=== PATIENT | male | born 1975 | race Caucasian/White ===

== ENCOUNTER 2019-11-13 21:11 | Emergency (ER) | payer OTHER, SELFPAY ==
[2019-11-13 21:15] VITALS: BP 164/92; PULSE 122; RESP 19; TEMP 36.8; O2SAT 96
--- NOTE | 2019-11-13 21:16 | W.ED.GENAD ---
Discharge Plan Disposition Patient Disposition: HOME Condition: Good Discharge Details Chief Complaint: Abd Prob Clinical Impression: Acute diverticulitis, Lesion of left lobe of liver Primary Care Provider: None,None ED Provider: Durga Vickers and New Rx's Prescriptions: New amoxicillin-pot clavulanate [Augmentin] 875-125 mg tablet 1 tab PO TID Qty: 27 RF: 0 Continued acetaminophen [Tylenol] 325 mg Tablet 975 mg PO PRN PRNRF: 0 Discharge Instructions Instructions: Diverticulitis (ED), Diverticulitis Diet (ED) Additional Instructions: Please stay home and rest. Plenty of fluids and bland diet for the next couple of days. Take antibiotic as directed. Alternate Tylenol with Motrin for pain. Will need recheck on Tuesday before returning back to work. Return to ED if you develop worsening pain, vomiting, spiking high fevers, otherwise feel worse. At some point will need further outpatient work-up of a lesion noted on CAT scan in the liver. Discuss this with primary care. Stand Alone Forms: Work Release Referrals: [facility] [Outside] [facility] [Outside] Medical Decision Making Patient presenting with abdominal pain that likely is related to diverticulitis or colitis given his description of pain and his exam. He is not febrile here. He does have elevated heart rate and blood pressure may be due to being uncomfortable. He does not look ill. He has a nonsurgical abdomen. IV established and fluids started. Patient declines both pain medication and antiemetic. Laboratory studies sent. CT scan of the abdomen pelvis ordered. Patient laboratory studies remarkable for white count of 13.5. Labs otherwise unremarkable including a normal lactic acid and a negative urine. On return from CT scan patient finally requested pain medication and was given IV Toradol. Preliminary read of the CT scan shows acute diverticulitis of the mid descending colon. He is also noted to have a 10 x 9 x 6 nonspecific left hepatic lobe of the liver that will need outpatient work-up. Patient is otherwise healthy with a nonsurgical abdomen and no vomiting. Should tolerate outpatient treatment of his diverticulitis. Will get a dose of IV Unasyn here. Will be started on Augmentin. Is asked to follow-up with primary care at the [facility] on Tuesday for recheck before returning to work. He is given a work note for the next 2 days. Return to ED for worsening pain, vomiting, spiking high fevers, other concerns or problems. Repeat belly exam at time of discharge remains benign with mild tenderness in the left lower quadrant but no guarding or rebound. Patient reports feeling better than when he came in. Lab Data Lab results reviewed: Yes I reviewed the patient's lab results. HPI General Mode of arrival: ambulatory. Date/Time Provider Initiated Documentation: 11/13/19 21:16. Limitations to Documentation: no limitations. Information obtained by: patient and RN notes reviewed. HPI Narrative: Patient presents to ED with complaint of abdominal pain. Patient reports pain started 2 days ago. It has been getting progressively worse. He now feels the urge to defecate almost constantly. He has some bloating. Discomfort is mostly in the lower abdomen but radiates to both sides of his back. He had some blood in the toilet but reports a history of hemorrhoids. He reports that the stool itself was normal in color. This was 2 days ago when the pain started. He now has liquidy stool which is mostly clear. She had no fever. He has no nausea/vomiting. He has an appetite. There is no family history of Crohn's or ulcerative colitis. He has had no travel outside of [place]. He has not been on antibiotics recently. 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 He has not drank from any [place] or streams. Related Data Home Medications Medication Instructions Recorded Confirmed acetaminophen [Tylenol] 975 mg PO PRN PRN 11/13/19 11/13/19 amoxicillin-pot clavulanate 1 tab PO TID #27 tab 11/13/19 [Augmentin] Previous Rx's Medication Instructions Recorded amoxicillin-pot clavulanate 1 tab PO TID #27 tab 11/13/19 [Augmentin] Allergies Allergy/AdvReac Type Severity Reaction Status Date / Time erythromycin base Allergy Severe Other (See Unverified 11/13/19 21:20 Comment) Review of Systems Narrative: 08/13 Review of Systems completed and is negative except as stated above in HPI (Systems reviewed: Const, Eyes, ENT, Resp, CV, GI, , MSK, Skin, Neuro) PFSH Medical History No active medical problems (Acute) Surgical History S/P hernia repair (Acute) Social History Smoking/Tobacco Use Status: Never Drug use: Never Substance use type: does not use Do you feel safe at home: Yes Do you feel safe in your relationship?: Yes Exam Narrative Exam Narrative: Vitals: Afebrile. Elevated heart rate and blood pressure. Normal room air pulse oximetry. Const: WDWN male in NAD. HEENT: NC/AT. Normal facial exam. Eyes: Normal conjunctiva and sclera. Neck: Supple. Trachea midline. Lungs: Normal respiratory effort. Lungs are clear. Cor: RRR without murmur/gallop. Good radial pulses. GI: Soft and nondistended. Bowel sounds decreased. Tender to palpation mostly in the left lower quadrant but without guarding or rebound. Some tenderness along the path of the colon all the way to the right lower quadrant. Rectal: Deferred. Back: No CVAT. Neuro: A+O x 3. Speech, gait, mentation is normal. No gross motor or sensory deficit. Ext: No C/C/E. No deformity or tenderness. Skin: Warm and dry without rash.
[2019-11-13] MEDS: Lactated Ringers 1,000 ML 125 ML IV (21:55)
[2019-11-13 22:02] LABS: Lactate 0.9 mmol/L (0.6-1.4)
[2019-11-13 22:03] LABS: Bilirubin Negative (Negative); Blood Negative (Negative); Clarity Clear (Clear); Glucose Negative (Negative); Ketones Negative (Negative); Leukocyte Esterase Negative (Negative); Nitrite Negative (Negative); Urobilinogen 0.2 EU/dL (Up TO 0.2)
[2019-11-13 22:04] LABS: Abs Immature Grans 0.04 k/cumm (0.0-0.09); Absolute Neutrophil Count 10.05 k/cumm (1.2-6.7); Basophils % 0.1; Eosinophils % 1.5; HGB 16.4 g/dL (13.5-17.5); Immature Grans % 0.3 %; Lymphocytes % 16.1; Mean Corp. HGB Concentration 34.2 g/dL (32.0-36.0); Mean Corpuscular Hemoglobin 31.2 pg (27.0-33.0); Mean Corpuscular Volume 91.3 fL (80-95); Mean Platelet Volume 10.7 fL (8.0-11.0); Platelet Count 281 x1000/uL (130-400); RBC 5.26 m/cumm (4.50-6.00); RBC Distribution Width 13.3 % (11.8-14.1); White Blood Cell Count 13.58 k/cumm (4.4-10.8)
[2019-11-13 22:05] LABS: Absolute Basophil Count 0.01 k/cumm (0.0-0.2); Absolute Lymphocyte Count 2.19 k/cumm (1.2-3.4); Absolute Monocyte Count 1.09 k/cumm (0.11-0.7)
[2019-11-13 22:18] LABS: Lipase 124 U/L (73-393)
[2019-11-13] MEDS: Omnipaque 350 MG/ML 100 ML BTL IV (22:19)
[2019-11-13 22:21] LABS: ALT 31 U/L (16-63); AST 12 U/L (15-37); Albumin 3.8 g/dL (3.4-5.0); Alkaline Phosphatase 61 U/L (46-116); BUN 17 mg/dL (7-18); Bilirubin, Total 0.6 mg/dL (0.2-1.0); CREATININE 0.85 mg/dL (0.70-1.30); Calcium 9.4 mg/dL (8.5-10.1); Chloride 104 mmol/L (98-107); Glucose 98 mg/dL (74-106); Potassium 4.1 mmol/L (3.5-5.1); Sodium 142 mmol/L (136-145); Total Protein 6.8 g/dL (6.4-8.2)
[2019-11-13] MEDS: Normal Saline - Diluent 50 ML VIAL IV (22:21)
--- NOTE | 2019-11-13 22:21 | DI.CT_ITS ---
EXAM: CT ABDOMEN PELVIS W CLINICAL HISTORY: abdominal pain; tender LLQ,constipation TECHNIQUE: Imaging Protocol: Axial computed tomography images with coronal and sagittal reformatted images were created and reviewed CONTRAST MATERIAL: Intravenous: Omnipaque 350 Contrast volume:100 mL Oral: No COMPARISON: No exams were available for comparison FINDINGS: ABDOMEN: Lung Bases: Normal where visualized. Liver: Normal density. There is a 0.9 x 0.6 x 1.0 cm., low-density lesion in the medial segment of th e left lobe of the liver. Gallbladder and biliary tract: No radiodense calculus or dilation. Pancreas: Normal density, no abnormal calcifications or inflammatory process. Spleen: Normal. 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 This is a normal variant. No mass or hydronephrosis. N o radiodense stones or obstructive uropathy. No masses seen. Adrenal glands: No masses seen. Abdominal Aorta: Abdominal portion non-dilated. PELVIS: Bladder: Symmetric distention, no gross wall thickening. Bowel: There is diverticulosis of the colon. There is a short segment of bowel wall thickening in th e descending colon with pericolonic inflammatory change noted. The findings are consistent with acut e diverticulitis. No abscess or free air is present. There is a normal appendix present. Peritoneal cavity: No ascites, collection or mesenteric inflammatory response. Bones: Within normal limits. Reproductive organs: The prostate gland is mildly enlarged. Lymph nodes: Unremarkable. Impression: 1. Findings of acute diverticulitis involving the descending colon. No abscess or free air. 2. 0.9 x 0.6 x 1.0 cm low-density lesion in the medial segment of the left lobe of the liver. The fi nding is nonspecific. For low risk patients, recommend follow-up CT or MRI in 6 months. For high ri sk patients, recommend multiphasic MRI and consider biopsy. For average risk patients, multiphasic M RI in 6 months is recommended. 3. Horseshoe kidney noted. This is a normal variant. DATA REPOSITORY: All CT scans at this facility are submitted to the National Radiology Data Registry (NRDR) Dose Index Registry (DIR) with the [employer] (ACR). RADIATION OPTIMIZATION: All CT scans at this facility use at least one of these dose optimization te chniques: automated exposure control; mA and/or kV adjustment per patient size (includes targeted exa ms where dose is matched to clinical indication); or iterative reconstruction.
[2019-11-13 22:30] VITALS: BP 140/93; PULSE 101; RESP 18; O2SAT 98
--- NOTE | 2019-11-13 22:52 | DI.VRAD_ITS ---
PROCEDURE INFORMATION: Exam: CT Abdomen And Pelvis With Contrast Exam date and time: 11/13/2019 10:21 PM Age: 44 years old Clinical indication: Localized; Prior surgery; Surgery date: 6+ months; Surgery type: Inguinal hernia repair as a child, vasectomy; Patient HX: Lower abdominal pain radiating around and down into groin area; Additional info: Constipation with diarrhea after TECHNIQUE: Imaging protocol: Computed tomography of the abdomen and pelvis with intravenous contrast. Radiation optimization: All CT scans at this facility use at least one of these dose optimization techniques: automated exposure control; mA and/or kV adjustment per patient size (includes targeted exams where dose is matched to clinical indication); or iterative reconstruction. Contrast material: OMNIPAQUE 350; Contrast volume: 100 ml; Contrast route: IV RAC; COMPARISON: No relevant prior studies available. FINDINGS: Lungs: Visualized lung bases are clear. Heart: Heart size normal. Mediastinum: The visualized distal esophagus is normal. Liver: Normal size and contour. 9 x 6 x 10 mm low-density lesion in the left hepatic lobe with fairly circumscribed peripheral margins, measuring 35 Hounsfield units on average density. This is nonspecific. For low risk patients, recommend follow up CT or MRI in 6 months. For average risk patients, recommend multiphasic MRI in 6 months. For high risk patients, recommend multiphasic MRI and consider biopsy (core preferred). No intrahepatic biliary ductal dilatation. Gallbladder and bile ducts: Normal. No calcified stones. No ductal dilation. Pancreas: Normal. No inflammatory changes or ductal dilation. Spleen: Normal. No splenomegaly. Adrenals: Normal. No adrenal mass. Kidneys and ureters: Horseshoe kidney configuration noted. No acute abnormalities. No hydronephrosis or hydroureter. No urinary tract stones are identified. Stomach and bowel: The stomach is grossly normal. The small bowel is normal with no evidence of obstruction. Mild-moderate distal colonic diverticulosis. Inflamed diverticulum along the medial anterior wall of the mid descending colon with short segment bowel wall thickening and moderate adjacent inflammatory stranding, consistent with acute diverticulitis. No evidence of perforation or abscess. Appendix: The appendix is normal in caliber and demonstrates no evidence of appendicitis. Intraperitoneal space: No free fluid or air. Vasculature: No acute process. No abdominal aortic aneurysm. Lymph nodes: No adenopathy. Bladder: Unremarkable as visualized. Reproductive: Mildly enlarged prostate. Bones/joints: No acute osseous abnormalities. Soft tissues: Unremarkable. IMPRESSION: 1. Evidence of acute diverticulitis in the mid descending colon. No evidence of perforation or abscess. 2. Mild-moderate distal colonic diverticulosis. 3. Nonspecific 10 x 9 x 6 mm low-density under enhancing lesion in the left hepatic lobe with somewhat indistinct peripheral margins and an average density of 35 Hounsfield units. These features are nonspecific. Please see follow-up imaging recommendations above. 4. Horseshoe kidney configuration noted, normal variant, with no acute renal abnormalities. Dictated and Authenticated by: Tomy Schneider MD. Ordering:SEFERINO Calixto MD
[2019-11-13] MEDS: Ketorolac 30 MG/ML VIAL IVP (22:53)
[2019-11-13] MEDS: AMPICILLIN/SULBACTAM 3 GM in Normal Saline 100 ML IVPB (23:13)
[2019-11-13 23:59] VITALS: BP 130/78; PULSE 100; RESP 16; TEMP 37.8; O2SAT 95
[2019-11-13] MEDS: Amoxicillin 875/Clav. 125 TAB PO (23:59)
--- NOTE | 2019-11-20 11:55 | CMPROGNOTE_ITS ---
Care Management Progress Note Seen in ER 11/13/19. Rec?d call from Pallavi in Radiology requesting PCP assignment for follow up. Per ER note[facility] noted. [facility] who confirmed PCP attachment at [facility] in [place], [place] with Izzy Elias APRN. Patient was seen 11/16/19. CM left message for Pallavi through Radiology [id number], notifying of PCP assignment. CM faxed notification to [facility] of PCP assignment and requested they update demographics.
== END 2019-11-14 | disposition home or self-care (01) ==
PROVIDERS: Emergency Provider Emergency Medicine; PCP Nurse Practitioner Primary Care
DX: K57.32 Diverticulitis of large intestine without perforation or abscess without bleeding (principal); R93.2 Abnormal findings on diagnostic imaging of liver and biliary tract
CPT/HCPCS: 36415; 80053; 83690; 96361; 96365; 96375; 99285; 74177; 81003; 83605; 83735; 85025; 99284; J0295; J1885; J3490

== ENCOUNTER 2019-12-25 01:59 | Outpatient (CLI) | payer OTHER, SELFPAY ==
--- NOTE | 2019-12-25 | DI.MRI_ITS ---
EXAM: MR ABDOMEN WO/W CLINICAL HISTORY: MULTIPLE INFECTIONS IN LAST YEAR, FEELING DRAINED, [id number]. TECHNIQUE: Multiplanar multisequence MRI was performed. COMPARISON: CT ABDOMEN PELVIS W from 11/13/2019 FINDINGS: MR examination of the abdomen was performed according to the usual protocol including post contrast i maging using arterial phase, venous phase, and 3 and 5 minutes delayed phase imaging. Note is made of horseshoe kidney. No evidence of hydronephrosis or renal mass. No evidence of adren al mass. No vascular abnormality seen, normal aortic diameter. Gallbladder and bile ducts unremarkable. 2 cm in diameter posterior segment right lobe hepatic lesio n shows a typical enhancement pattern of hemangioma. No additional focal hepatic lesion. No pancrea tic cyst. No pancreatic mass lesion or enhancing lesion. No adenopathy identified. Unremarkable appearance of the spleen. IMPRESSION: Negative abdominal MRI. No evidence of a pancreatic mass. Incidental right lobe posterior segment 2 cm hepatic hemangioma. DATA REPOSITORY:
[2019-12-25] MEDS: Normal Saline Flush 10 ML SYR IVP (14:20)
[2019-12-25] MEDS: Gadoterate meglumine 20 ML VIAL IVP (14:20)
== END 2019-12-25 02:19 ==
PROVIDERS: PCP Nurse Practitioner Primary Care; Visit Provider Nurse Practitioner Primary Care
DX: R53.83 Other fatigue (principal); D18.03 Hemangioma of intra-abdominal structures
CPT/HCPCS: 74183

== ENCOUNTER 2020-03-19 13:00 | Outpatient (CLI) | payer OTHER, SELFPAY ==
[2020-03-20 17:12] LABS: COVID-19 RT-PCR Result NEGATIVE (Negative)
== END 2020-03-19 13:20 ==
PROVIDERS: PCP Nurse Practitioner Primary Care; Visit Provider Nurse Practitioner Primary Care
DX: Z11.59 Encounter for screening for other viral diseases (principal)
CPT/HCPCS: U0003

== ENCOUNTER 2020-05-23 12:38 | Outpatient (CLI) | payer OTHER, SELFPAY ==
[2020-05-27 21:47] LABS: SARS-CoV-2 RNA Undetected (Undetected); SARS-CoV-2 Specimen Source Nasopharynx
== END 2020-05-23 12:58 ==
PROVIDERS: PCP Nurse Practitioner Primary Care; Visit Provider Nurse Practitioner
DX: Z11.59 Encounter for screening for other viral diseases (principal)
CPT/HCPCS: U0003

== ENCOUNTER 2020-06-25 06:22 | Emergency (ER) | payer OTHER, SELFPAY ==
--- NOTE | 2020-06-25 06:15 | DI.RAD_ITS ---
EXAM: XR WRIST RT COMPL NAVICULAR CLINICAL HISTORY: pain s/p fall TECHNIQUE: COMPARISON: No exams were available for comparison FINDINGS: Four views were obtained. No fracture is seen. Mild degenerative changes noted at the greater multa ngular 1st metacarpal joint. IMPRESSION: RADIATION DOSE DELIVERED: Total DLP
--- NOTE | 2020-06-25 06:15 | DI.RAD_ITS ---
EXAM: XR KNEE LT 3V AP,LAT,ANN MARIE CLINICAL HISTORY: pain s/p fall TECHNIQUE: COMPARISON: No exams were available for comparison FINDINGS: Three views were obtained. There is moderate soft tissue swelling over the patella. There is no verenice dence of acute fracture or dislocation. IMPRESSION: RADIATION DOSE DELIVERED: Total DLP
[2020-06-25 06:26] VITALS: BP 112/87; PULSE 89; RESP 16; TEMP 36.6; O2SAT 96
--- NOTE | 2020-06-25 06:27 | ED.GENADUL_ITS ---
Discharge Plan Disposition Patient Disposition: HOME Condition: Stable Discharge Details Chief Complaint: Orthopedic Clinical Impression: Contusion of knee, left, Right wrist sprain Primary Care Provider: Izzy Elias ED Provider: Dony Garcia Home Meds and New Rx's Prescriptions: Continued propranolol 40 mg tablet 40 mg PO BID RF: 0 hydrochlorothiazide 12.5 mg capsule 12.5 mg PO DAILY RF: 0 hydroxyzine HCl 25 mg tablet 25 mg PO QID PRN (Reason: itching) Qty: 30 RF: 1 albuterol sulfate 90 mcg/actuation HFA aerosol inhaler 2 puff IH Q4H PRNRF: 0 acetaminophen [Tylenol] 325 mg Tablet 975 mg PO PRN PRNRF: 0 Changed ibuprofen 800 mg tablet 800 mg PO Q8H PRN PRNQty: 0 RF: 0 Discharge Instructions Instructions: Contusion in Adults (ED) Additional Instructions: if pain continues in a week follow up with your primary care provider if you have new pain such as chest pain, abdominal pain or severe worsening pain return to the emergency department Medical Decision Making 44 yo male who has hx of migraines, 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 Denies hitting head or loc. Denies headache, neck pain, back pain, chest pain, abdominal pain. Has pain in left anterior knee with some swelling and bruising though is able to bear weight and has full rom and intact distal sensation. Also has ulnar surface of his right wrist pain though no visible or palpable deformity and full rom with intact sensaiton and pulses. Suspect wrist sprin and knee contusions but will xray to eval for fx pt remains stable with no new changes and no new pain, xrays negative for acute fx/dislocation. Placed in hinged knee brace and crutches to use as needed. ADvised f/u with pcp and return precautions given Differential Diagnosis Differential Diagnosis: sprain strain contusion fracture Imaging Data Radiologic Study: Attestation: I personally reviewed and interpreted this imaging study as follows: Imaging: X-Ray My impression: no acute findings knee xray Radiologic Study #2: Attestation: I personally reviewed and interpreted this imaging study as follows: Imaging: X-Ray My impression: no acute findings wrist xray HPI General Mode of arrival: ambulatory . Date/Time Provider Initiated Documentation: 06/25/20 06:23 . Limitations to Documentation: no limitations . Information obtained by: patient . History of Present Illness 44 year old M presents to the emergency department with the chief complaint of left knee pain, described as moderate, Patient started experiencing this hour(s) (2) and it has been constant. Rest improves symptom(s), Movement worsens symptoms . Patient did receive the following treatments prior to arrival, none Related Data Home Medications Medication Instructions Recorded Confirmed acetaminophen [Tylenol] 975 mg PO PRN PRN 11/13/19 06/25/20 propranolol 40 mg tablet 40 mg PO BID 02/20/20 06/25/20 albuterol sulfate 90 mcg/actuation 2 puff IH Q4H PRN gm 02/26/20 06/25/20 aerosol inhaler hydrochlorothiazide 12.5 mg capsule 12.5 mg PO DAILY 04/02/20 06/25/20 hydroxyzine HCl 25 mg tablet 25 mg PO QID PRN #30 tab 04/02/20 06/25/20 ibuprofen 800 mg PO Q8H PRN PRN #0 tab 06/25/20 06/25/20 Previous Rx's Medication Instructions Recorded hydroxyzine HCl 25 mg tablet 25 mg PO QID PRN #30 tab 04/02/20 ibuprofen 800 mg PO Q8H PRN PRN #0 tab 06/25/20 Allergies Allergy/AdvReac Type Severity Reaction Status Date / Time erythromycin base AdvReac Severe N/V Unverified 05/14/20 09:18 General STEVE: 3 Review of Systems All systems reviewed & are unremarkable except as noted in HPI and below Constitutional Constitutional: Denies chills, Denies fever(s) and Denies weakness Cardiovascular Cardiovascular: Denies chest pain and Denies dyspnea Respiratory Respiratory: Denies cough and Denies dyspnea Gastrointestinal Gastrointestinal: Denies abdominal pain, Denies nausea and Denies vomiting Neurologic Neurologic: Denies weakness Psychiatric Psychiatric: Denies depression [facility] Medical History (Updated 06/25/20 @ 06:37 by Dony Garcia MD) Asthma (Chronic) Benign essential hypertension (Acute) Chronic sinusitis of both maxillary sinuses (Acute) Ear pain (Acute) Erectile dysfunction (Acute) Migraine headache with aura (Acute) Migraine headache without aura (Acute) No active medical problems (Acute) Pain, joint, ankle, left (Acute) Surgical History H/O vasectomy (Acute) S/P hernia repair (Acute) Family History Mother Breast cancer Thyroid disease Osteoarthritis Maternal Grandmother Breast cancer Maternal Cousin Breast cancer Father , 52 NARCOTIC RELATED No problems noted. Social History Smoking/Tobacco Use Status: Never Alcohol Intake: current Alcohol Intake frequency: holidays/special occasions only Alcohol type: beer Drug use: Never Substance use type: does not use Household members: spouse and children Number of Children: 5 Pets and animals: Yes What is your relationship status?: Panel score (0-1 are the most socially isolated patients): 1 Seatbelt use: always Do you feel safe at home: Yes Do you feel safe in your relationship?: Yes Exam Const General: no acute distress Orientation: alert HENMT Head: normal to inspection Ears: external ears normal General nose exam: external nose normal Mouth: moist mucous membranes Eyes General: appearance normal, both eyes and all related structures Neck Neck: normal visual inspection Resp Effort & Inspection: normal respiratory effort and able to speak in complete sentences Cardio Rate: regular rate Skin General skin exam: no rashes or lesions noted Neuro General: patient alert and patient oriented x3 Extrem General: capillary refill normal Psych Mental Status: mental status grossly normal
[2020-06-25] MEDS: Ibuprofen 600 MG TAB PO (06:31)
--- NOTE | 2020-06-25 06:54 | DI.VRAD_ITS ---
PROCEDURE INFORMATION: Exam: XR Left Knee Exam date and time: 06/25/2020 6:38 AM Age: 44 years old Clinical indication: Injury or trauma; Fall; Work related; Initial encounter; Blunt trauma; Knee; Right TECHNIQUE: Imaging protocol: XR Left knee. Views: 3 views. COMPARISON: No relevant prior studies available. FINDINGS: Bones/joints: No acute fracture, dislocation or joint effusion Soft tissues: Normal. IMPRESSION: No acute findings. Dictated and Authenticated by: Kuldip Sandoval MD. Ordering:SYLVIA Napoles MD
--- NOTE | 2020-06-25 06:55 | DI.VRAD_ITS ---
PROCEDURE INFORMATION: Exam: XR Right Wrist Exam date and time: 06/25/2020 6:43 AM Age: 44 years old Clinical indication: Pain; Wrist; Right TECHNIQUE: Imaging protocol: XR Right wrist. Views: 3 or more views. COMPARISON: No relevant prior studies available. FINDINGS: Bones/joints: No acute fracture or dislocation. Mild degenerative changes at the 1st carpal metacarpal joint with mild subluxation noted Soft tissues: Normal. IMPRESSION: No acute fracture detected Degenerative changes at the 1st carpal metacarpal joint with mild subluxation as noted Dictated and Authenticated by: Kuldip Sandoval MD. Ordering:SYLVIA Napoles MD
== END 2020-06-25 07:08 | disposition home or self-care (01) ==
PROVIDERS: Emergency Provider Emergency Medicine; PCP Nurse Practitioner Primary Care
DX: S80.02XA Contusion of left knee, initial encounter (principal); S63.501A Unspecified sprain of right wrist, initial encounter; W18.39XA Other fall on same level, initial encounter; Y99.0 Civilian activity done for income or pay; I10 Essential (primary) hypertension
CPT/HCPCS: 29505; 73562; 99284; 73110; E0114; L1810

== ENCOUNTER 2020-07-15 12:02 | Emergency (ER) | payer OTHER, SELFPAY ==
[2020-07-15 12:07] VITALS: BP 131/77; PULSE 79; RESP 16; TEMP 36.5; O2SAT 94
--- NOTE | 2020-07-15 12:30 | ED.GENADUL_ITS ---
Discharge Plan Disposition Patient Disposition: HOME Condition: Improving Discharge Details Clinical Impression: Bursitis due to trauma Primary Care Provider: Izzy Elias ED Provider: Huang Padron Home Meds and New Rx's Prescriptions: Continued propranolol 40 mg tablet 40 mg PO BID RF: 0 hydrochlorothiazide 12.5 mg capsule 12.5 mg PO DAILY RF: 0 hydroxyzine HCl 25 mg tablet 25 mg PO QID PRN (Reason: itching) Qty: 30 RF: 1 albuterol sulfate 90 mcg/actuation HFA aerosol inhaler 2 puff IH Q4H PRNRF: 0 acetaminophen [Tylenol] 325 mg Tablet 975 mg PO PRN PRNRF: 0 ibuprofen 800 mg tablet 800 mg PO Q8H PRN PRNQty: 0 RF: 0 Discharge Instructions Additional Instructions: I have placed a referral today to the orthopedic clinic for you to be seen in follow-up. Please call the orthopedic office at [phone] for an appointment time. Ice area to reduce discomfort. May be weightbearing as tolerated with the use of crutches. May use the hinged knee brace as needed for comfort. Return if you develop a fever or any other acute concern Medical Decision Making 44-year-old male who fell while running outside during a drill at work on June 25. He landed on bilateral flexed knees. He was seen in the emergency department had unremarkable radiographs of the left knee was placed in a hinged knee brace. He went on to develop significant bruising of that leg and has had persistent pain, swelling, weakness with extension over the intervening weeks. Differential diagnosis includes internal derangement of the knee, quadriceps rupture, prepatellar bursitis. Discussed with Dr. Becker and patient referred for MRI which does show prepatellar fluid and articular cartilage defect. There is no internal derangement or quadriceps rupture. We will have the patient continued to protect the knee with a hinged knee brace, add crutches and given the persistence of his discomfort I will have him follow-up in orthopedics. HPI General Mode of arrival: ambulatory . Date/Time Provider Initiated Documentation: 07/15/20 12:03 . Limitations to Documentation: no limitations . Information obtained by: patient . History of Present Illness 44 year old M presents to the emergency department with the chief complaint of Left knee injury June 25, persistent pain and swelling, described as moderate, Quality is described as dull, and is localized to the left and lower extremity. Patient started experiencing this week(s) and it has been constant. Rest improves symptom(s), Movement worsens symptoms . Patient notes other (Bruising); denies weakness. Patient did receive the following treatments prior to arrival, none Related Data Home Medications Medication Instructions Recorded Confirmed acetaminophen [Tylenol] 975 mg PO PRN PRN 11/13/19 07/15/20 propranolol 40 mg tablet 40 mg PO BID 02/20/20 07/15/20 albuterol sulfate 90 mcg/actuation 2 puff IH Q4H PRN gm 02/26/20 07/15/20 aerosol inhaler hydrochlorothiazide 12.5 mg capsule 12.5 mg PO DAILY 04/02/20 07/15/20 hydroxyzine HCl 25 mg tablet 25 mg PO QID PRN #30 tab 04/02/20 07/15/20 ibuprofen 800 mg PO Q8H PRN PRN #0 tab 06/25/20 07/15/20 Previous Rx's Medication Instructions Recorded hydroxyzine HCl 25 mg tablet 25 mg PO QID PRN #30 tab 04/02/20 ibuprofen 800 mg PO Q8H PRN PRN #0 tab 06/25/20 Allergies Allergy/AdvReac Type Severity Reaction Status Date / Time erythromycin base AdvReac Severe N/V Unverified 07/15/20 12:10 General Stated Complaint: Orthopedic STEVE: 4 Review of Systems Narrative: Patient noted significant bruising of which she has pictures on his cell phone that occurred after the injury on June 25. He has had persistent pain and edema, difficulty with extension of the leg. 6 systems reviewed and otherwise negative [facility] Medical History Asthma Benign essential hypertension Chronic sinusitis of both maxillary sinuses Ear pain Erectile dysfunction Migraine headache with aura Migraine headache without aura No active medical problems Pain, joint, ankle, left Surgical History H/O vasectomy S/P hernia repair Family History Mother Breast cancer Thyroid disease Osteoarthritis Maternal Grandmother Breast cancer Maternal Cousin Breast cancer Father , 52 NARCOTIC RELATED No problems noted. Social History Smoking/Tobacco Use Status: Never Alcohol Intake: current Alcohol Intake frequency: holidays/special occasions only Alcohol type: beer Drug use: Never Substance use type: does not use Household members: spouse and children Number of Children: 5 Pets and animals: Yes What is your relationship status?: Panel score (0-1 are the most socially isolated patients): 1 Seatbelt use: always Do you feel safe at home: Yes Do you feel safe in your relationship?: Yes Exam Narrative Exam Narrative: GEN: awake, alert, oriented 3. Pleasant, well groomed, interactive. HEAD: Normocephalic, atraumatic EYES: PERRL, EOMI NECK: Full ROM, no CECILIO, no menigismus CHEST/RESP: No respiratory distress EXT: Right lower extremity unremarkable, the left distal quadriceps has a palpable defect. Patient is barely able to extend the leg against gravity but not against resistance. He has prepatellar swelling and tenderness. No significant laxity is appreciated. Neuro: Grossly normal neurologic exam, conversant, interactive. Psych: Speech fluent, thoughts congruent, affect normal Course Vital Signs Vital signs: Vital Signs Temperature 36.5 C 07/15/20 12:07 Pulse 79 07/15/20 12:07 Respiratory Rate 16 07/15/20 12:07 Blood Pressure 131/77 07/15/20 12:07 Pulse Oximetry 94 07/15/20 12:07 Temperature 36.5 C 07/15/20 12:07 Temperature Source Skin 07/15/20 12:07 Pulse 79 07/15/20 12:07 Respiratory Rate 16 07/15/20 12:07 Respiratory Effort Non-Labored 07/15/20 12:07 Blood Pressure 131/77 07/15/20 12:07 Blood Pressure Position Sitting 07/15/20 12:07 Pulse Oximetry 94 07/15/20 12:07 Oxygen Delivery Method Room Air 07/15/20 12:07 Oxygen Flow Rate 0 07/15/20 12:07 Pain Level 9 07/15/20 12:07
--- NOTE | 2020-07-15 13:20 | DI.MRI_ITS ---
EXAM: MR LOWER JOINT LT WO CLINICAL HISTORY: 06/25 injuy, distqal quad defect, prepatellar swell. TECHNIQUE: Multiplanar multisequence MRI was performed. COMPARISON: No exams were available for comparison FINDINGS: MR examination of the knee was performed according to the usual protocol. The patient has a history direct trauma to the patellar region today. There is subcutaneous hematoma which lies anterior to the patella and extends both medially and later ally to patella. There is minimal free fluid in the knee joint. There is no evidence of an acute bony injury of the patella, femur, or tibia. There is an irregular articular cartilage defect of the patella most prominent at the patellar apex a nd also involving the lateral facet. There is some artifact in this area, but there may also be an a ccompanying trochlear articular cartilage defect. These defects may be either acute or chronic. The menisci and attachments appear intact with no evidence of a tear. Anterior and posterior cruciate ligaments appear normal with no evidence of a tear. No significant medial collateral ligament injury, lateral collateral ligament injury, or posterolater al corner injury. The articular cartilage of the medial and lateral tibiofemoral joints appears intact. IMPRESSION: Prepatellar soft tissue hematoma, no evidence of quadriceps tear. Cartilage abnormalities of the patella and corresponding femoral trochlea as described above, these m ay be acute or chronic. DATA REPOSITORY:
== END 2020-07-15 13:54 | disposition home or self-care (01) ==
LOC: ER 13:46
PROVIDERS: Emergency Provider Emergency Medicine; PCP Nurse Practitioner Primary Care
DX: M70.42 Prepatellar bursitis, left knee (principal); W18.39XA Other fall on same level, initial encounter; Y99.0 Civilian activity done for income or pay; I10 Essential (primary) hypertension
CPT/HCPCS: 73721; 99284; 99283

== ENCOUNTER 2020-07-18 08:31 | Outpatient (CLI) | payer OTHER, SELFPAY ==
--- NOTE | 2020-07-18 08:15 | DI.RAD_ITS ---
EXAM: XR KNEE LT 1V CLINICAL HISTORY: left knee injury TECHNIQUE: COMPARISON: CR,XR XR KNEE LT 3V AP,LAT,ANN MARIE from 06/25/2020 FINDINGS: Single Merchant view obtained. Patella is unremarkable in appearance on this view and appears normal ly situated with respect to trochlear groove. IMPRESSION: RADIATION DOSE DELIVERED: Total DLP
== END 2020-07-18 08:51 ==
PROVIDERS: PCP Nurse Practitioner Primary Care; Referring Provider Nurse Practitioner Primary Care; Visit Provider Student in an Organized Health Care Education/Training Program
DX: S89.82XA Other specified injuries of left lower leg, initial encounter (principal)
CPT/HCPCS: 73560

== ENCOUNTER 2020-11-19 03:44 | Outpatient (CLI) | payer OTHER, SELFPAY ==
[2020-11-20 18:25] LABS: COVID-19 RT-PCR Result NEGATIVE (Negative)
== END 2020-11-19 04:04 ==
PROVIDERS: PCP Nurse Practitioner Primary Care; Visit Provider Nurse Practitioner Primary Care
DX: R05 Cough (principal)
CPT/HCPCS: U0003

== ENCOUNTER 2022-05-04 21:52 | Emergency (ER) | payer OTHER, SELFPAY ==
[2022-05-04 22:02] VITALS: BP 90/53; PULSE 83; RESP 16; TEMP 35.9; O2SAT 98
--- NOTE | 2022-05-04 22:30 | RT.EKG_ITS ---
APPROVED REPORT Exam: Resting ECG Reason for Exam: Hx Lyme, R/O myocarditis Patient Location: E HR:82 bpm ECG Measurements Heart Rate 82 AXIS NE 197 P 49 QRSd 102 QRS 62 QT 386 T 19 QTc 452 Conclusion Sinus rhythm, no acute st changes
--- NOTE | 2022-05-04 22:31 | ED.GENADUL_ITS ---
Discharge Plan Disposition Patient Disposition: STILL A PATIENT Discharge Details Primary Care Provider: Izzy Elias ED Provider: Carine Edmondson Home Meds and New Rx's Prescriptions: No Action propranolol 40 mg tablet 40 mg PO BID hydrochlorothiazide 12.5 mg capsule 12.5 mg PO DAILY hydroxyzine HCl 25 mg tablet 25 mg PO QID PRN (Reason: itching) Qty: 30 1RF albuterol sulfate 90 mcg/actuation HFA aerosol inhaler 2 puff IH Q4H PRN acetaminophen [Tylenol] 325 mg Tablet 975 mg PO PRN PRN Label Comments: 11/13/19-not effective ibuprofen 800 mg tablet 800 mg PO Q8H PRN PRNQty: 0 0RF Medical Decision Making 46-year-old male presents to the ER with chief complaint of nausea vomiting which began after eating Oyster for dinner approximately 3 hours prior to arrival. He was recently released from the hospital ([facility]) after being diagnosed with Lyme disease and having similar type symptoms. He presents pale, right urine, diaphoretic actively vomiting. He did take 3 Zofran tablets prior to arrival with little to no relief. He denies any chest pain he reports abdominal pain. He does have a past medical history of migraine asthma, hypertension, he does smoke marijuana daily. Denies any alcohol or other drugs. Surgical history includes hernia repair and vasectomy. Initially patient presented blood pressure 90/53. reports that he finished doxycycline 2 days ago. CBC, CMP, troponin, EKG, blood cultures urinalysis ordered. 1 L normal saline 10 mg Reglan 0.5 mg of lorazepam ordered. Zofran canceled. 2306: Patient reevaluation, he did just have an episode of emesis, blood cultures are being drawn at this time. Lactate 2.5, white blood cell count 11.41, absolute neutrophils 9.08 CMP largely within normal limits glucose 124, troponin less than 50 EKG shows no STEMI. No old EKG available for review. Please see Dr. Padron's official report. Patient is receiving second liter of LR, droperidol 1.25 mg IV ordered for nausea and vomiting. Patient has had multiple episodes of emesis since being here. He is unable to give a urine specimen at this time. Differential diagnosis includes but not limited to hyperemesis cannabinoid syndrome, food poisoning, gastroenteritis, bowel obstruction, appendicitis, CT abdomen pelvis without contrast ordered chest x-ray ordered. Care is to be handed off to ER Dr. Padron pending CT abdomen pelvis chest x-ray UA, additional medication administration and reevaluation. Lab Data Lab results reviewed: Yes I reviewed the patient's lab results. Labs: 05/04/22 23:04 Blood Blood Culture - Pending 05/04/22 23:04 Blood Blood Culture - Pending Laboratory Tests Range/Units 05/04/22 05/04/22 05/04/22 22:41 22:41 23:17 WBC (4.4-10.8) 10^3/uL 11.41 H RBC (4.36-5.78) 10^6/uL 5.32 Hgb (13.5-17.5) g/dL 16.4 Hct (40.0-50.0) % 48.8 MCV (80-95) fL 92 MCH (27.0-33.0) pg 30.8 MCHC (32.0-36.0) % 33.6 RDW (11.8-14.1) % 13.0 Plt Count (130-400) 10^3/uL 297 MPV (8.0-11.0) fL 10.9 Immature Gran % 0.4 Neutrophils % 79.6 Lymphocytes % 15.2 Monocytes % 3.9 Eosinophils % 0.3 Basophils % 0.6 Nucleated RBC % (0.0-0.3) % 0.0 Absolute Neutrophils (1.2-6.7) 10^3/uL 9.08 H Absolute Lymphocytes (1.2-3.4) 10^3/uL 1.73 Absolute Monocytes (0.1-0.8) 10^3/uL 0.44 Absolute Eosinophils (0.0-0.7) 10^3/uL 0.03 Absolute Basophils (0.0-0.2) 10^3/uL 0.07 VBG Lactate (0.6-1.4) mmol/L 2.5 H* Sodium (136-145) mmol/L 138 Potassium (3.5-5.1) mmol/L 3.7 Chloride (98-107) mmol/L 102 Carbon Dioxide (21.0-32.0) mmol/L 25.5 Anion Gap (3-11) mmol/L 10.5 BUN (7-18) mg/dL 18 Creatinine (0.70-1.30) mg/dL 0.8 Estimated GFR/1.73 m2 (mL/min/1.73m2) >= 60.00 Glucose (74-106) mg/dL 124 H Calcium (8.5-10.1) mg/dL 9.7 Magnesium (1.8-2.4) mg/dL 1.9 Total Bilirubin (0.2-1.0) mg/dL 0.9 AST (15-37) U/L 19 ALT (16-63) U/L 38 Alkaline Phosphatase (46-116) U/L 54 Troponin I (<or=60) ng/L < 50 Total Protein (6.4-8.2) g/dL 7.1 Albumin (3.4-5.0) g/dL 4.1 HPI General Mode of arrival: wheelchair . Date/Time Provider Initiated Documentation: 05/04/22 21:54 . Limitations to Documentation: no limitations . Information obtained by: patient, RN notes reviewed and old records reviewed . HPI Narrative: 46-year-old male presents to the ER with chief complaint of nausea vomiting which began after eating Oyster for dinner approximately 3 hours prior to arrival. He was recently released from the hospital () after being diagnosed with Lyme disease and having similar type symptoms. He presents pale, right urine, diaphoretic actively vomiting. He did take 3 Zofran tablets prior to arrival with little to no relief. He denies any chest pain he reports abdominal pain. He does have a past medical history of migraine asthma, hypertension, he does smoke marijuana daily. Denies any alcohol or other drugs. Surgical history includes hernia repair and vasectomy. Initially patient presented blood pressure 90/53. reports that he finished doxycycline 2 days ago. Related Data Home Medications Medication Instructions Recorded Confirmed acetaminophen 325 mg tablet 975 mg PO PRN PRN 11/13/19 07/18/20 (Tylenol) propranolol 40 mg tablet 40 mg PO BID 02/20/20 07/18/20 albuterol sulfate 90 mcg/actuation 2 puff inhalation Q4H PRN 02/26/20 07/18/20 aerosol inhaler hydrochlorothiazide 12.5 mg capsule 12.5 mg PO DAILY 04/02/20 07/18/20 hydroxyzine HCl 25 mg tablet 25 mg PO QID PRN itching #30 tabs 04/02/20 07/18/20 ibuprofen 800 mg tablet 800 mg PO Q8H PRN PRN #0 tabs 06/25/20 07/18/20 Previous Rx's Medication Instructions Recorded hydroxyzine HCl 25 mg tablet 25 mg PO QID PRN itching #30 tabs 04/02/20 ibuprofen 800 mg tablet 800 mg PO Q8H PRN PRN #0 tabs 06/25/20 Allergies Allergy/AdvReac Type Severity Reaction Status Date / Time erythromycin base AdvReac Severe N/V Verified 05/04/22 22:08 General Stated Complaint: Nausea/Vomit/Diar STEVE: 2 Review of Systems All systems reviewed & are unremarkable except as noted in HPI and below Constitutional Constitutional: Reports body ache(s), Reports chills and Reports excessive sweating Cardiovascular Cardiovascular: Denies dyspnea Respiratory Respiratory: Denies cough, Denies dyspnea, Denies stridor and Denies wheezing Gastrointestinal Gastrointestinal: Reports abdominal pain, Reports nausea and Reports vomiting Integumentary/Breasts Skin/Breast: Denies rash Endocrine Endocrine: Reports excessive sweating Allergic/Immunologic Allergic/Immunologic: Denies wheezing PFSH All Active Problems Articular cartilage disorder of left knee (Acute) Amplified musculoskeletal pain (Acute) Stiffness of left knee (Acute) Ear pain (Acute) Migraine headache with aura (Acute) Migraine headache without aura (Acute) Medical History Asthma Benign essential hypertension Chronic sinusitis of both maxillary sinuses Erectile dysfunction No active medical problems Pain, joint, ankle, left Surgical History H/O vasectomy S/P hernia repair Family History Mother Breast cancer Thyroid disease Osteoarthritis Maternal Grandmother Breast cancer Maternal Cousin Breast cancer Father , 52 NARCOTIC RELATED No problems noted. Social History Smoking/Tobacco Use Status: Never Smoking risk assessment performed?: Yes Alcohol Intake: current Alcohol Intake frequency: holidays/special occasions only Alcohol type: beer Drug use: Never Substance use type: marijuana Household members: spouse and children Number of Children: 5 Pets and animals: Yes What is your relationship status?: Panel score (0-1 are the most socially isolated patients): 1 Seatbelt use: always Do you feel safe at home: Yes Do you feel safe in your relationship?: Yes Exam Narrative Exam Narrative: Constitutional: Alert and oriented x3. Appears stated age. Normal body habitus. Diaphoretic upon initial presentation actively vomiting. Head: Normocephalic, no trauma. Eyes: Pupils PERRL, Red reflex noted, EOM's intact. Eyelids symmetrical without lesions, discharge, or swelling. Chest: RRR, Normal S1, S2, distal pulses intact. Resp: Lungs clear to auscultation bilaterally, no wheezes, rales, or rhonchi. Abdomen: Soft, non-distended, generalized tenderness all 4 quadrants. Musculoskeletal: Unable to assess gait. 5/5 strength to all four extremities. Skin: No suspicious rashes or lesions. Capillary refill less than 2 sec. Neurologic: Cranial nerves II-XII intact. Alert and oriented x 3. Motor: No deficits noted. Sensory: Intact bilaterally all 4 extremities. Hematologic/Lymphatic: No ecchymosis, no lymphadenopathy. Course Vital Signs Vital signs: Vital Signs Temperature 35.9 C L 05/04/22 22:02 Pulse 83 05/04/22 22:02 Respiratory Rate 16 05/04/22 22:02 Blood Pressure 90/53 L 05/04/22 22:02 Pulse Oximetry 98 05/04/22 22:02 Temperature 35.9 C L 05/04/22 22:02 Pulse 83 05/04/22 22:02 Respiratory Rate 16 05/04/22 22:02 Respiratory Effort Non-Labored 05/04/22 22:06 Blood Pressure 90/53 L 05/04/22 22:02 Blood Pressure Position Sitting 05/04/22 22:02 Pulse Oximetry 98 05/04/22 22:02 Oxygen Delivery Method Room Air 05/04/22 22:02 Oxygen Flow Rate 0 05/04/22 22:02 Pain Level 8 05/04/22 22:02 Comment 05/04/22 22:02
[2022-05-04] MEDS: Metoclopramide 10 MG/2 ML VIAL (22:42)
[2022-05-04] MEDS: Normal Saline 1,000 ML 1000 ML IV (22:43)
[2022-05-04 22:49] LABS: Abs Immature Grans 0.04 10^3/uL (0.0-0.06); Absolute Basophil Count 0.07 10^3/uL (0.0-0.2); Absolute Eosinophil Count 0.03 10^3/uL (0.0-0.7); Absolute Lymphocyte Count 1.73 10^3/uL (1.2-3.4); Absolute Monocyte Count 0.44 10^3/uL (0.1-0.8); Basophils % 0.6; Eosinophils % 0.3; HCT 48.8 % (40.0-50.0); HGB 16.4 g/dL (13.5-17.5); Immature Grans % 0.4; Lymphocytes % 15.2; MCH 30.8 pg (27.0-33.0); MCHC 33.6 % (32.0-36.0); MCV 92 fL (80-95); MPV 10.9 fL (8.0-11.0); Monocytes % 3.9; Neutrophils % 79.6; Platelet Count 297 10^3/uL (130-400); RBC 5.32 10^6/uL (4.36-5.78); RDW-SD 43.4 fL; WBC 11.41 10^3/uL (4.4-10.8)
[2022-05-04 22:50] LABS: Absolute Neutrophil Count 9.08 10^3/uL (1.2-6.7)
[2022-05-04] MEDS: LORazepam 2 MG/ML VIAL 0.5 MG IVP (22:54)
[2022-05-04 22:56] VITALS: BP 148/69; PULSE 67
[2022-05-04 23:09] LABS: ALT 38 U/L (16-63); AST 19 U/L (15-37); Albumin 4.1 g/dL (3.4-5.0); Alkaline Phosphatase 54 U/L (46-116); Anion Gap 10.5 mmol/L (3-11); BUN 18 mg/dL (7-18); Bilirubin, Total 0.9 mg/dL (0.2-1.0); CO2 25.5 mmol/L (21.0-32.0); CREATININE 0.8 mg/dL (0.70-1.30); Calcium 9.7 mg/dL (8.5-10.1); Chloride 102 mmol/L (98-107); Glucose 124 mg/dL (74-106); Magnesium 1.9 mg/dL (1.8-2.4); Potassium 3.7 mmol/L (3.5-5.1); Sodium 138 mmol/L (136-145); Total Protein 7.1 g/dL (6.4-8.2)
[2022-05-04 23:10] LABS: Troponin I < 50 ng/L (<or=60)
[2022-05-04 23:29] LABS: Lactate 2.5 mmol/L (0.6-1.4)
--- NOTE | 2022-05-04 23:30 | DI.RAD_ITS ---
Exam(s) XR CHEST 1V IN DI DEPT EXAM: XR CHEST 1V IN DI DEPT CLINICAL HISTORY: Vomiting, TECHNIQUE: 2D digital imaging was performed. COMPARISON: No exams were available for comparison FINDINGS: LUNGS: Clear. No pleural abnormality seen. HEART: Normal. AORTA: Normal. BONES: Unremarkable for age. Soft tissues: Unremarkable. IMPRESSION: No acute findings. DATA REPOSITORY: RADIATION DOSE DELIVERED:
--- NOTE | 2022-05-04 23:30 | DI.CT_ITS ---
Exam(s) CT ABDOMEN PELVIS WO EXAM: CT ABDOMEN PELVIS WO CLINICAL HISTORY: Nausea, Vomiting,. TECHNIQUE: Imaging Protocol: Axial computed tomography images with coronal and sagittal reformatted images were created and reviewed. Oral: no COMPARISON: CT CT ABDOMEN PELVIS W from 11/13/2019 FINDINGS: ABDOMEN: Exam is somewhat limited by patient motion. Lung Bases: Normal where visualized. Liver: Normal density. No measurable mass. Gallbladder and biliary tract: No radiodense calculus or dilation. Pancreas: Normal density, no abnormal calcifications or inflammatory process. Spleen: Normal. Kidneys: Horseshoe kidney. No radiodense stones or obstructive uropathy. No masses seen. Adrenal glands: No masses seen. Lymph nodes: Within normal limits. Abdominal Aorta: Abdominal portion non-dilated. PELVIS: Bladder: Symmetric distention, no gross wall thickening. Bowel: Small-bowel non distended. No gastric distension. Large quantity of stool in the rectum. Di verticulosis of the descending and sigmoid. No evidence of diverticulitis. No obstruction or bowel wall thickening. Peritoneal cavity: No ascites, collection or mesenteric inflammatory response. Reproductive organs: Within normal limits. Bones: Degenerative changes greatest at the lower thoracic level. IMPRESSION: Horseshoe kidney. No evidence of hydronephrosis. Diverticulosis without evidence of diverticulitis. RADIATION DOSE DELIVERED: 1,012.9mGy.cm Total DLP DATA REPOSITORY: All CT scans at this facility are submitted to the National Radiology Data Registry (NRDR) Dose Index Registry (DIR) with the [employer] (ACR). RADIATION OPTIMIZATION: All CT scans at this facility use at least one of these dose optimization te chniques: automated exposure control; mA and/or kV adjustment per patient size (includes targeted exa ms where dose is matched to clinical indication); or iterative reconstruction.
[2022-05-05] MEDS: Lactated Ringers 1,000 ML 1000 ML IV (00:13)
[2022-05-05 00:41] LABS: Bilirubin Negative (Negative); Blood Negative (Negative); Clarity Clear (Clear); Glucose Negative (Negative); Ketones 80 mg/dL (Negative); Leukocyte Esterase Negative (Negative); Nitrite Negative (Negative); Urobilinogen 0.2 EU/dL (Up TO 0.2); pH 8.5 (5-8)
[2022-05-05] MEDS: Droperidol 5 MG/2 ML VIAL 1.25 MG IVP (00:48)
[2022-05-05 02:03] LABS: Lactate 1.4 mmol/L (0.6-1.4)
--- NOTE | 2022-05-05 02:42 | DI.VRAD_ITS ---
PROCEDURE INFORMATION: Exam: XR Chest Exam date and time: 05/05/2022 1:33 AM Age: 46 years old Clinical indication: Other: Vomiting, TECHNIQUE: Imaging protocol: Radiologic exam of the chest. Views: 1 view. COMPARISON: CT ABDOMEN PELVIS WO 05/05/2022 1:27 AM FINDINGS: Lungs: Unremarkable. No consolidation. Pleural spaces: Unremarkable. No pleural effusion. No pneumothorax. Heart/Mediastinum: Unremarkable. No cardiomegaly. Bones/joints: Unremarkable. IMPRESSION: No acute findings. Dictated and Authenticated by: Kuldip Sandoval MD. Ordering:MICHAELLE Hawk MD
--- NOTE | 2022-05-05 02:42 | DI.VRAD_ITS ---
PROCEDURE INFORMATION: Exam: CT Abdomen And Pelvis Without Contrast Exam date and time: 05/05/2022 1:27 AM Age: 46 years old Clinical indication: Other: Nausea, vomiting, TECHNIQUE: Imaging protocol: Computed tomography of the abdomen and pelvis without contrast. Radiation optimization: All CT scans at this facility use at least one of these dose optimization techniques: automated exposure control; mA and/or kV adjustment per patient size (includes targeted exams where dose is matched to clinical indication); or iterative reconstruction. COMPARISON: MR ABDOMEN WO/W 12/25/2019 1:43 PM FINDINGS: Mildly limited due to motion artifact Liver: Normal. No mass. Gallbladder and bile ducts: Normal. No calcified stones. No ductal dilation. Pancreas: Normal. No ductal dilation. Spleen: Normal. No splenomegaly. Adrenal glands: Normal. No mass. Kidneys and ureters: Horseshoe kidney No hydronephrosis. Stomach and bowel: Colonic diverticulosis. No obstruction. No mucosal thickening. Appendix: No evidence of appendicitis. Intraperitoneal space: Unremarkable. No free air. No significant fluid collection. Vasculature: Unremarkable. No abdominal aortic aneurysm. Lymph nodes: Unremarkable. No enlarged lymph nodes. Urinary bladder: Unremarkable as visualized. Reproductive: Unremarkable as visualized. Bones/joints: Degenerative changes in the spine. No acute fracture. Soft tissues: Unremarkable. IMPRESSION: Colonic diverticulosis without diverticulitis Horseshoe kidney without hydronephrosis Nonspecific nonobstructed bowel gas pattern Dictated and Authenticated by: Kuldip Sandoval MD. Ordering:MICHAELLE Hawk MD
--- NOTE | 2022-05-05 02:50 | W.ED.FU ---
Date of service: 05/05/22 Time of Service: 02:50 Follow Up Plan: Received signout from Rosanne Delvis, please see her note regarding details of the presentation. Patient improved following fluids and medications. Repeat lactic was obtained and normal. Patient subsequently felt better. He is stable and appropriate for trial of home management. Will offer antiemetics for home.
[2022-05-05] MEDS: Metoclopramide 10 MG TAB 20 MG PO (03:57)
== END 2022-05-05 04:08 | disposition still patient (30) ==
PROVIDERS: Registered Nurse Emergency; Emergency Provider Emergency Medicine; PCP Nurse Practitioner Primary Care
DX: R11.2 Nausea with vomiting, unspecified (principal); R10.84 Generalized abdominal pain; I10 Essential (primary) hypertension; Z98.52 Vasectomy status; Z98.890 Other specified postprocedural states
CPT/HCPCS: 36415; 80053; 87040; 93005; 96361; 96374; 96375; 99285; 71045; 74176; 81003; 83605; 83735; 84484; 85025; 93010; 99284; J1790; J2060; J2765

== ENCOUNTER 2022-11-04 14:44 | Outpatient (REF) | payer SELFPAY ==
[2022-11-06 11:50] LABS: COVID-19 RT-PCR UVMMC Result Negative (Negative)
== END 2022-11-04 14:45 | disposition home or self-care (01) ==
LOC: LBN 14:44
PROVIDERS: PCP Nurse Practitioner Primary Care; Visit Provider Physician Assistant Medical
DX: Z20.822 Contact with and (suspected) exposure to COVID-19 (principal); J34.89 Other specified disorders of nose and nasal sinuses
CPT/HCPCS: U0003

== ENCOUNTER 2022-11-04 16:37 | Outpatient (CLI) | payer SELFPAY ==
--- NOTE | 2022-11-04 | DI.RAD_ITS ---
Exam(s) XR CHEST 2V PA LATERAL EXAM: XR CHEST 2V PA LATERAL CLINICAL HISTORY: COUGH, R05.8, ? PNEUMONIA VS ASTHMA EXACERBATION. TECHNIQUE: 2D digital imaging was performed. COMPARISON: CR,XR XR CHEST 1V IN DI DEPT from 05/05/2022 FINDINGS: 2 views: Heart size is normal. The mediastinum is not widened. No new infiltrates nor obvious pleural. No pneumothorax IMPRESSION: No acute pulmonary findings. DATA REPOSITORY: RADIATION DOSE DELIVERED:
== END 2022-11-04 16:57 ==
PROVIDERS: PCP Nurse Practitioner Primary Care; Visit Provider Physician Assistant Medical
DX: R05.8 Other specified cough (principal)
CPT/HCPCS: 71046

== ENCOUNTER 2024-06-11 15:02 | Outpatient (CLI) | payer OTHER, SELFPAY ==
[2024-06-11 12:55] LABS: Abs Immature Grans 0.04 10^3/uL (0.0-0.06); Absolute Basophil Count 0.04 10^3/uL (0.0-0.2); Absolute Eosinophil Count 0.57 10^3/uL (0.0-0.7); Absolute Lymphocyte Count 2.37 10^3/uL (1.2-3.4); Absolute Neutrophil Count 6.17 10^3/uL (1.2-6.7); Basophils % 0.4 %; Eosinophils % 5.9 %; HCT 48.3 % (40.0-50.0); HGB 16.1 g/dL (13.5-17.5); Immature Grans % 0.4 %; Lymphocytes % 24.5 %; MCH 31.4 pg (27.0-33.0); MCHC 33.3 % (32.0-36.0); MCV 94 fL (80-95); MPV 10.3 fL (8.0-11.0); Monocytes % 5.2 %; Neutrophils % 63.6 %; Platelet Count 222 10^3/uL (130-400); RBC 5.12 10^6/uL (4.36-5.78); RDW 13.1 % (11.8-14.1); RDW-SD 45.5 fL; WBC 9.69 10^3/uL (4.4-10.8)
[2024-06-11 13:24] LABS: Ferritin 153 ng/mL (26-388)
== END 2024-06-11 15:03 | disposition home or self-care (01) ==
PROVIDERS: PCP Nurse Practitioner Primary Care; Visit Provider Internal Medicine Hematology & Oncology
DX: E83.110 Hereditary hemochromatosis (principal)
CPT/HCPCS: 36415; 82728; 85025

== ENCOUNTER 2024-06-14 04:01 | Outpatient (RCR) | payer OTHER, SELFPAY | END 2024-06-30 23:59 | disposition home or self-care (01) | LOC: INF 04:01 | PROVIDERS: PCP Nurse Practitioner Primary Care; Visit Provider Internal Medicine Hematology & Oncology | DX: E83.110 Hereditary hemochromatosis (principal) | CPT/HCPCS: 99195 ==

== ENCOUNTER 2024-07-11 03:44 | Outpatient (CLI) | payer OTHER, SELFPAY ==
[2024-07-11 09:54] LABS: Abs Immature Grans 0.05 10^3/uL (0.0-0.06); Absolute Basophil Count 0.05 10^3/uL (0.0-0.2); Absolute Lymphocyte Count 2.02 10^3/uL (1.2-3.4); Absolute Monocyte Count 0.78 10^3/uL (0.1-0.8); Absolute Neutrophil Count 11.93 10^3/uL (1.2-6.7); Basophils % 0.3 %; Eosinophils % 3.3 %; HCT 50.5 % (40.0-50.0); HGB 17.2 g/dL (13.5-17.5); Immature Grans % 0.3 %; Lymphocytes % 13.2 %; MCH 31.6 pg (27.0-33.0); MCHC 34.1 % (32.0-36.0); MCV 93 fL (80-95); MPV 10.4 fL (8.0-11.0); Monocytes % 5.1 %; Neutrophils % 77.8 %; Platelet Count 240 10^3/uL (130-400); RBC 5.44 10^6/uL (4.36-5.78); RDW-SD 44.4 fL; WBC 15.33 10^3/uL (4.4-10.8)
[2024-07-11 10:01] LABS: Absolute Eosinophil Count 0.51 10^3/uL (0.0-0.7)
[2024-07-11 10:27] LABS: Ferritin 116 ng/mL (26-388)
== END 2024-07-11 03:45 | disposition home or self-care (01) ==
LOC: LBO 03:44
PROVIDERS: PCP Nurse Practitioner Primary Care; Visit Provider Internal Medicine Hematology & Oncology
DX: E83.110 Hereditary hemochromatosis (principal)
CPT/HCPCS: 36415; 82728; 85025

== ENCOUNTER 2024-07-12 03:25 | Outpatient (RCR) | payer OTHER, SELFPAY | END 2024-07-30 23:59 | disposition home or self-care (01) | LOC: INF 03:25 | PROVIDERS: PCP Nurse Practitioner Primary Care; Visit Provider Internal Medicine Hematology & Oncology | DX: E83.110 Hereditary hemochromatosis (principal) | CPT/HCPCS: 99195 ==

== ENCOUNTER 2024-08-02 01:52 | Outpatient (CLI) | payer OTHER, SELFPAY ==
[2024-08-02 10:08] LABS: Abs Immature Grans 0.03 10^3/uL (0.0-0.06); Absolute Basophil Count 0.06 10^3/uL (0.0-0.2); Absolute Eosinophil Count 0.69 10^3/uL (0.0-0.7); Absolute Lymphocyte Count 1.93 10^3/uL (1.2-3.4); Absolute Monocyte Count 0.64 10^3/uL (0.1-0.8); Absolute Neutrophil Count 4.98 10^3/uL (1.2-6.7); Basophils % 0.7 %; Eosinophils % 8.3 %; HCT 50.1 % (40.0-50.0); HGB 16.3 g/dL (13.5-17.5); Immature Grans % 0.4 %; Lymphocytes % 23.2 %; MCHC 32.5 % (32.0-36.0); MCV 95 fL (80-95); MPV 10.2 fL (8.0-11.0); Monocytes % 7.7 %; Neutrophils % 59.7 %; Platelet Count 218 10^3/uL (130-400); RBC 5.25 10^6/uL (4.36-5.78); RDW 12.9 % (11.8-14.1); RDW-SD 45.4 fL; WBC 8.33 10^3/uL (4.4-10.8)
[2024-08-02 10:33] LABS: Ferritin 85 ng/mL (26-388)
== END 2024-08-02 01:53 | disposition home or self-care (01) ==
LOC: LBO 01:52
PROVIDERS: PCP Nurse Practitioner Primary Care; Visit Provider Internal Medicine Hematology & Oncology
DX: E83.110 Hereditary hemochromatosis (principal)
CPT/HCPCS: 36415; 82728; 85025

== ENCOUNTER 2024-08-20 19:30 | Emergency (ER) | payer OTHER, SELFPAY ==
[2024-08-20 19:31] VITALS: BP 138/83; PULSE 81; RESP 18; TEMP 36.4; O2SAT 98
[2024-08-20 20:16] LABS: Abs Immature Grans 0.04 10^3/uL (0.0-0.06); Absolute Basophil Count 0.03 10^3/uL (0.0-0.2); Absolute Eosinophil Count 0.01 10^3/uL (0.0-0.7); Absolute Lymphocyte Count 0.91 10^3/uL (1.2-3.4); Absolute Monocyte Count 0.33 10^3/uL (0.1-0.8); Basophils % 0.2 %; Eosinophils % 0.1 %; Immature Grans % 0.3 %; MCH 31.3 pg (27.0-33.0); MCHC 34.6 % (32.0-36.0); MCV 90 fL (80-95); MPV 10.6 fL (8.0-11.0); Monocytes % 2.5 %; Neutrophils % 89.9 %; Platelet Count 309 10^3/uL (130-400); RBC 5.75 10^6/uL (4.36-5.78); RDW 12.9 % (11.8-14.1); RDW-SD 42.7 fL
[2024-08-20 20:19] LABS: Absolute Neutrophil Count 11.69 10^3/uL (1.2-6.7)
[2024-08-20] MEDS: FAMOTIDINE 20 MG in Normal Saline 100 ML 400 MG IVPB (20:20)
[2024-08-20] MEDS: Ondansetron 4 MG/2 ML VIAL IVP (20:21)
[2024-08-20] MEDS: Normal Saline Flush 10 ML SYR IVP (20:21)
[2024-08-20] MEDS: Normal Saline 1,000 ML 1000 ML IV (20:21)
[2024-08-20 20:35] LABS: ALT 21 U/L (16-63); AST 15 U/L (15-37); Albumin 3.8 g/dL (3.4-5.0); Alkaline Phosphatase 72 U/L (46-116); Anion Gap 11.9 mmol/L (3-11); BUN 23 mg/dL (7-18); Bilirubin, Total 0.48 mg/dL (0.2-1.0); CO2 27.1 mmol/L (21.0-32.0); CREATININE 1.1 mg/dL (0.70-1.30); Calcium 10.4 mg/dL (8.5-10.1); Chloride 110 mmol/L (98-107); Estimated GFR 82.81 (mL/min/1.73m2); Glucose 139 mg/dL (74-106); Lipase 15 U/L (16-77); Potassium 4.1 mmol/L (3.5-5.1); Sodium 149 mmol/L (136-145); Total Protein 7.5 g/dL (6.4-8.2)
[2024-08-20] MEDS: Normal Saline - Diluent 50 ML VIAL IJ (20:59)
[2024-08-20] MEDS: Omnipaque 350 MG/ML 100 ML BTL 85 ML IJ (21:00)
--- NOTE | 2024-08-20 21:18 | DI.CT_ITS ---
Exam(s) CT ABDOMEN PELVIS W EXAM: CT ABDOMEN PELVIS W CLINICAL HISTORY: abdominal pain, vomiting. TECHNIQUE: Imaging Protocol: Axial computed tomography images with coronal and sagittal reformatted images were created and reviewed CONTRAST MATERIAL: Intravenous: Omnipaque-350 85cc Oral: None COMPARISON: CT CT ABDOMEN PELVIS WO from 05/05/2022 FINDINGS: VISUALIZED LUNG BASES: No nodules nor pleural effusions evident. ABDOMEN: There is no ascites. LIVER: There is a subtle hypodensity in the right hepatic lobe which was probably present noninfused study of April 2022 and has appearance of a probable hemangioma. This measures approximately 2 cm by 1.5 cm. No other focal hepatic lesions identified. No dilated intrahepatic ducts. GALLBLADDER/BILIARY: No obvious gallbladder pathology. CBD is not dilated. PANCREAS: No evidence of pancreatic mass nor dilatation of the pancreatic duct. SPLEEN: Spleen is not enlarged. No obvious intrasplenic lesions. Splenic and portal veins are paten t. ADRENALS: There are no significant adrenal masses. 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 No solid renal m asses. No calculi nor hydronephrosis.. ABDOMINAL AORTA: Abdominal aorta is not enlarged. LYMPH NODES:There is no retroperitoneal nor paraaortic adenopathy. ABDOMINAL WALL: No evidence of significant anterior abdominal wall nor inguinal hernia. GI: There is no evidence of bowel obstruction, free air, nor abscess. The colon is collapsed from the cecum to the upper sigmoid. PELVIS: GI: No evidence of appendicitis.There is sigmoid diverticuli. No obvious acute diverticulitis. LYMPH NODES: There is no intrapelvic nor inguinal adenopathy. REPRODUCTIVE: Prostate size upper normal. Seminal vesicles unremarkable. URINARY BLADDER: No calculi nor obvious masses evident OSSEOUS: No fractures and no significant osseous lesions. IMPRESSION: 1. No acute process in the abdomen and pelvis 2. Incidentally noted is what is probably a 2 x 1.5 cm hemangioma in the right hepatic lobe. This ca n be further studied with MRI using contrast infused hemangioma protocol. 3. Developmental horseshoe kidney again noted. No hydronephrosis nor renal masses. 4. Sigmoid diverticuli with no evidence of acute diverticulitis. The colon above the sigmoid is dalton apsed and difficult to evaluate. RADIATION DOSE DELIVERED: 635.16mGy.cm Total DLP DATA REPOSITORY: All CT scans at this facility are submitted to the National Radiology Data Registry (NRDR) Dose Index Registry (DIR) with the [employer] (A[employer]). RADIATION OPTIMIZATION: All CT scans at this facility use at least one of these dose optimization te chniques: automated exposure control; mA and/or kV adjustment per patient size (includes targeted exa ms where dose is matched to clinical indication); or iterative reconstruction.
[2024-08-20] MEDS: Prochlorperazine 10 MG/2 ML VIAL 5 MG IVP (22:08)
--- NOTE | 2024-08-20 22:29 | DI.VRAD_ITS ---
PROCEDURE INFORMATION: Exam: CT Abdomen And Pelvis With Contrast Exam date and time: 08/20/2024 9:03 PM Age: 48 years old Clinical indication: Patient HX: Abdominal pain, vomiting TECHNIQUE: Imaging protocol: Computed tomography of the abdomen and pelvis with contrast. Contrast material: [id number]; Contrast volume: 85 ml; Contrast route: INTRAVENOUS (IV); COMPARISON: CT ABDOMEN PELVIS WO 05/05/2022 1:27 AM FINDINGS: Lungs: Nonspecific bibasilar consolidation is present, consistent with atelectasis, edema, or pneumonia. Diaphragm: There is a small hiatal hernia. Liver: 1 cm hepatic hemangioma. Gallbladder and biliary ducts: Normal. No calcified stones. No ductal dilation. Pancreas: Normal. No ductal dilation. Spleen: Normal. No splenomegaly. Adrenal glands: Normal. No mass. Kidneys and ureters: Horseshoe kidney. Stomach and bowel: Colonic diverticulosis without evidence of diverticulitis. Appendix: No evidence of appendicitis. Intraperitoneal space: Unremarkable. No free air. No significant fluid collection. Vasculature: Unremarkable. No abdominal aortic aneurysm. Lymph nodes: Unremarkable. No enlarged lymph nodes. Urinary bladder: Unremarkable as visualized. Reproductive: Unremarkable as visualized. Bones/joints: The lumbar spine demonstrates mild degenerative changes at multiple levels. Posterior disc bulge at L4/L5 and L5/S1. Soft tissues: Unremarkable. IMPRESSION: No acute abdominopelvic process. Chronic noncritical findings as described above. Dictated and Authenticated by: Jada Hinton MD. Ordering:KELY Rodrigues MD
[2024-08-20 23:00] VITALS: BP 170/92; PULSE 69; RESP 16; O2SAT 98
[2024-08-20] MEDS: Promethazine 25 MG TAB PO (23:42)
--- NOTE | 2024-08-21 00:11 | ED.GENADUL_ITS ---
Discharge Plan Disposition Patient Disposition: Home Condition: Stable Discharge Details Clinical Impression: Vomiting Primary Care Provider: Izzy Elias ED Provider: Hardeep Palmer Home Meds and New Rx's Prescriptions: New metoclopramide HCl [Reglan] 10 mg tablet 10 mg PO Q6H PRN (Reason: nausea and vomiting) Qty: 20 0RF No Action propranolol 40 mg tablet 40 mg PO BID hydrochlorothiazide 12.5 mg capsule 12.5 mg PO DAILY albuterol sulfate 90 mcg/actuation HFA aerosol inhaler 2 puff IH Q4H PRN dextroamphetamine-amphetamine 10 mg capsule,extended release 24hr 10 mg PO DAILY aripiprazole 5 mg tablet 5 mg PO DAILY clonidine HCl 0.1 mg tablet 0.1 mg PO QHS diclofenac sodium [Aleve (diclofenac)] 1 % gel 2 g topical QID Rx Instructions: apply to single elbow, wrist or hand; for hand includes palm/fingers/back of hand erenumab-aooe 140 mg/mL auto-injector 140 mg subcut QMONTH escitalopram oxalate 20 mg tablet 20 mg PO DAILY fluticasone propion-salmeterol 100-50 mcg/dose blister with device 1 inh inhalation BID Rx Instructions: INHALE 1 PUFF BY MOUTH TWICE A DAY FOR BREATHING RINSE MOUTH WITH WATER, SWISH AROUND AND SPIT OUT AFTER USING INHALER fluticasone propionate 50 mcg/actuation blister with device 2 inh inhalation BID hydrochlorothiazide 12.5 mg tablet 12.5 mg PO DAILY lisdexamfetamine 40 mg capsule 40 mg PO DAILY omeprazole 20 mg capsule,delayed release(DR/EC) 20 mg PO DAILY onabotulinumtoxinA 200 unit recon soln 200 unit IM ONCE Rx Instructions: as a single dose ondansetron HCl 4 mg tablet 4 mg PO Q8H Rx Instructions: TAKE ONE TABLET BY MOUTH TWICE A DAY FOR BLOOD PRESSURE/HEART sumatriptan 20 mg/actuation spray,non-aerosol 20 mg intranasal Q2H PRN Rx Instructions: administer into one nostril as a single dose; if 2nd dose needed,administer into other nostril after at least 2 hrs, NTE 2 doses (40 mg) per episode tadalafil 5 mg tablet 5 mg PO DAILY atorvastatin 20 mg tablet 20 mg PO DAILY calcium carbonate [Calcium 500] 500 mg calcium (1,250 mg) tablet,chewable 500 mg PO DAILY docusate sodium 100 mg capsule 100 mg PO DAILY acetaminophen [Tylenol] 325 mg Tablet 975 mg PO PRN PRN Patient Comments: 11/13/19-not effective ibuprofen 800 mg tablet 800 mg PO Q8H PRN PRNQty: 0 0RF Discharge Instructions Instructions: Nausea and vomiting in adults HPI General Date/Time Provider Initiated Documentation: 08/20/24 19:39 . Limitations to Documentation: no limitations . Information obtained by: patient . HPI Narrative: 48-year-old gentleman with past medical history of migraines presents for evaluation of vomiting. Symptoms started this morning and have been persistent all day. Reports some mild diarrhea, but otherwise has mostly been vomiting. Has generalized abdominal crampiness. No fever. No known sick contacts. No abnormal or improperly cooked foods. Patient reports that this has happened previously when he had Lyme disease and also once when he had vibrio from bad oysters. Did take Zofran at home without resolution of the vomiting. Has not been able to tolerate any liquids all day. Related Data Home Medications ?Medication ?Instructions ?Recorded ?Confirmed acetaminophen 325 mg tablet 975 mg PO PRN PRN 11/13/19 08/20/24 (Tylenol) propranolol 40 mg tablet 40 mg PO BID 02/20/20 08/20/24 albuterol sulfate 90 mcg/actuation 2 puff inhalation Q4H PRN 02/26/20 08/20/24 aerosol inhaler hydrochlorothiazide 12.5 mg capsule 12.5 mg PO DAILY 04/02/20 08/20/24 ibuprofen 800 mg tablet 800 mg PO Q8H PRN PRN #0 tabs 06/25/20 08/20/24 aripiprazole 5 mg tablet 5 mg PO DAILY 12/06/23 08/20/24 atorvastatin 20 mg tablet 20 mg PO DAILY 12/06/23 08/20/24 calcium carbonate (Calcium 500) 500 mg PO DAILY 12/06/23 08/20/24 clonidine HCl 0.1 mg tablet 0.1 mg PO QHS 12/06/23 08/20/24 dextroamphetamine-amphetamine ER 10 mg PO DAILY 12/06/23 08/20/24 10 mg 24hr capsule,extend release diclofenac sodium 1 % topical gel 2 g topical QID 12/06/23 08/20/24 (Aleve (diclofenac)) docusate sodium 100 mg capsule 100 mg PO DAILY 12/06/23 08/20/24 erenumab-aooe 140 mg/mL 140 mg subcut QMONTH 12/06/23 08/20/24 subcutaneous auto-injector escitalopram oxalate 20 mg tablet 20 mg PO DAILY 12/06/23 08/20/24 fluticasone 100 mcg-salmeterol 50 1 inh inhalation BID 12/06/23 08/20/24 mcg/dose blistr powdr for inhalation fluticasone propionate 50 2 inh inhalation BID 12/06/23 08/20/24 mcg/actuation blister powder for inhalation hydrochlorothiazide 12.5 mg tablet 12.5 mg PO DAILY 12/06/23 08/20/24 lisdexamfetamine 40 mg capsule 40 mg PO DAILY 12/06/23 08/20/24 omeprazole 20 mg capsule,delayed 20 mg PO DAILY 12/06/23 08/20/24 release onabotulinumtoxinA 200 unit 200 unit IM ONCE 12/06/23 08/20/24 solution for injection ondansetron HCl 4 mg tablet 4 mg PO Q8H 12/06/23 08/20/24 sumatriptan 20 mg/actuation nasal 20 mg intranasal Q2H PRN 12/06/23 08/20/24 spray tadalafil 5 mg tablet 5 mg PO DAILY 12/06/23 08/20/24 metoclopramide HCl 10 mg tablet 10 mg PO Q6H PRN nausea and 08/20/24 (Reglan) vomiting #20 tabs Previous Rx's ?Medication ?Instructions ?Recorded ibuprofen 800 mg tablet 800 mg PO Q8H PRN PRN #0 tabs 06/25/20 metoclopramide HCl 10 mg tablet 10 mg PO Q6H PRN nausea and 08/20/24 (Reglan) vomiting #20 tabs Allergies Allergy/AdvReac Type Severity Reaction Status Date / Time erythromycin base AdvReac Severe N/V Verified 08/20/24 19:34 General Stated Complaint: Abd Prob STEVE: 3 Exam Narrative Exam Narrative: Review of Systems: All systems reviewed & are unremarkable except as noted in HPI and below Well-developed, actively vomiting NCAT PERRL, normal conjunctiva + Dry mucous membranes RRR Unlabored respiratory effort Nondistended abdomen mild tenderness mostly on the left side No rashes or lesions. no focal neurologic deficits Course Vital Signs Vital signs: Vital Signs Temperature 36.4 C 08/20/24 19:31 Pulse 81 08/20/24 19:31 Respiratory Rate 18 08/20/24 19:31 Blood Pressure 138/83 08/20/24 19:31 Pulse Oximetry 98 08/20/24 19:31 Temperature 36.4 C 08/20/24 19:31 Temperature Source Temporal Artery Scan 08/20/24 19:31 Pulse 69 08/20/24 23:00 Pulse Rhythm Regular 08/20/24 23:00 Pulse Strength Normal 08/20/24 23:00 Respiratory Rate 16 08/20/24 23:00 Respiratory Effort Normal, Non-Labored 08/20/24 23:00 Respiratory Depth Normal 08/20/24 23:00 Respiratory Pattern Normal 08/20/24 23:00 Blood Pressure 170/92 H 08/20/24 23:00 Blood Pressure Mean 118 08/20/24 23:00 Blood Pressure Position Sitting 08/20/24 23:00 Pulse Oximetry 98 08/20/24 23:00 Oxygen Delivery Method Room Air 08/20/24 23:00 Oxygen Flow Rate 0 08/20/24 23:00 Pain Level 8 08/20/24 19:31 Lab/Test Results Lab/Test Results: Laboratory Tests Range/Units 08/20/24 20:00 WBC (4.4-10.8) 10^3/uL 13.00 H RBC (4.36-5.78) 10^6/uL 5.75 Hgb (13.5-17.5) g/dL 18.0 H Hct (40.0-50.0) % 52.0 H MCV (80-95) fL 90 MCH (27.0-33.0) pg 31.3 MCHC (32.0-36.0) % 34.6 RDW (11.8-14.1) % 12.9 Plt Count (130-400) 10^3/uL 309 MPV (8.0-11.0) fL 10.6 Immature Gran % % 0.3 Neutrophils % % 89.9 Lymphocytes % % 7.0 Monocytes % % 2.5 Eosinophils % % 0.1 Basophils % % 0.2 Nucleated RBC % (0.0-0.3) % 0.0 Absolute Neutrophils (1.2-6.7) 10^3/uL 11.69 H Absolute Lymphocytes (1.2-3.4) 10^3/uL 0.91 L Absolute Monocytes (0.1-0.8) 10^3/uL 0.33 Absolute Eosinophils (0.0-0.7) 10^3/uL 0.01 Absolute Basophils (0.0-0.2) 10^3/uL 0.03 Sodium (136-145) mmol/L 149 H Potassium (3.5-5.1) mmol/L 4.1 Chloride (98-107) mmol/L 110 H Carbon Dioxide (21.0-32.0) mmol/L 27.1 Anion Gap (3-11) mmol/L 11.9 H BUN (7-18) mg/dL 23 H Creatinine (0.70-1.30) mg/dL 1.1 Est GFR (CKD-EPI 2020) (mL/min/1.73m2) 82.81 Glucose (74-106) mg/dL 139 H Calcium (8.5-10.1) mg/dL 10.4 H Magnesium (1.8-2.4) mg/dL 2.0 Total Bilirubin (0.2-1.0) mg/dL 0.48 AST (15-37) U/L 15 ALT (16-63) U/L 21 Alkaline Phosphatase (46-116) U/L 72 Total Protein (6.4-8.2) g/dL 7.5 Albumin (3.4-5.0) g/dL 3.8 Lipase (16-77) U/L 15 L Medical Decision Making Emergent evaluation of vomiting. Initial differential includes viral illness, foodborne illness, pancreatitis. Lower suspicion for bowel obstruction but the patient does have history of inguinal hernia repair. Vital signs are stable and the patient does appear to be clinically dehydrated. Despite the IV fluids shortage, I do feel that the patient would benefit from IV fluids at this time. Will order 1 IV fluid bolus. Patient was given IV fluids in addition to antiemetics. He has a mild elevation in his white count at 13, likely shift from vomiting. His hemoglobin and hematocrit are significantly elevated, likely hemoconcentration from dehydration. His electrolytes are consistent with this. Slight anion gap, slight elevation in BUN at 23. Glucose elevated without evidence of DKA. His lipase was not significantly elevated. CT imaging was obtained to evaluate for possible acute intra-abdominal process and this did not reveal an acute etiology that would cause his vomiting. His vomiting resolved and some mild nausea persisted. He was provided additional nausea medications to take at home. Given the recurrent nature of the symptoms. I do recommend close follow-up with his PCP and possible [facility]. Return precautions advised. Quality:SDOH Health Related Social Needs: No Data to Display PFSH All Active Problems (Updated 08/20/24 @ 23:56 by Hardeep Palmer MD) Vomiting (Acute) Neck pain on left side (Acute) Ulnar neuropathy of left upper extremity (Acute) Bilateral carpal tunnel syndrome (Acute) Articular cartilage disorder of left knee (Acute) Amplified musculoskeletal pain (Acute) Stiffness of left knee (Acute) Ear pain (Acute) Migraine headache with aura (Acute) Migraine headache without aura (Acute) Medical History Erectile dysfunction Chronic sinusitis of both maxillary sinuses Pain, joint, ankle, left Asthma Benign essential hypertension No active medical problems Surgical History H/O vasectomy S/P hernia repair Family History Mother Breast cancer Thyroid disease Osteoarthritis Maternal Grandmother Breast cancer Maternal Cousin Breast cancer Father , 52 NARCOTIC RELATED No problems noted. Social History Smoking/Tobacco Use Status: Never Smoking risk assessment performed?: Yes Alcohol Intake: current Alcohol Intake frequency: holidays/special occasions only Alcohol type: beer Drug use: Daily Substance use type: marijuana Household members: spouse and children Number of Children: 5 Pets and animals: Yes What is your relationship status?: Panel score (0-1 are the most socially isolated patients): 1 Seatbelt use: always Do you feel safe at home: Yes Do you feel safe in your relationship?: Yes
== END 2024-08-20 23:59 | disposition home or self-care (01) ==
PROVIDERS: Emergency Provider Emergency Medicine; PCP Nurse Practitioner Primary Care
DX: R11.2 Nausea with vomiting, unspecified (principal)
CPT/HCPCS: 80053; 83690; 96361; 96365; 96375; 99285; 74177; 83735; 85025; 99284; J0780; J2405; J3490

== ENCOUNTER 2024-08-31 11:29 | Outpatient (CLI) | payer OTHER, SELFPAY ==
[2024-08-31 08:35] LABS: Abs Immature Grans 0.03 10^3/uL (0.0-0.06); Absolute Basophil Count 0.06 10^3/uL (0.0-0.2); Absolute Eosinophil Count 0.55 10^3/uL (0.0-0.7); Absolute Lymphocyte Count 1.91 10^3/uL (1.2-3.4); Absolute Neutrophil Count 4.76 10^3/uL (1.2-6.7); Basophils % 0.8 %; HCT 46.2 % (40.0-50.0); HGB 15.4 g/dL (13.5-17.5); Immature Grans % 0.4 %; Lymphocytes % 24.5 %; MCH 31.4 pg (27.0-33.0); MCHC 33.3 % (32.0-36.0); MCV 94 fL (80-95); Monocytes % 6.4 %; Neutrophils % 60.9 %; Platelet Count 260 10^3/uL (130-400); RBC 4.91 10^6/uL (4.36-5.78); RDW 12.9 % (11.8-14.1); RDW-SD 44.6 fL; WBC 7.81 10^3/uL (4.4-10.8)
[2024-08-31 09:02] LABS: Ferritin 52 ng/mL (26-388)
== END 2024-08-31 11:30 | disposition home or self-care (01) ==
LOC: LBO 11:34
PROVIDERS: PCP Nurse Practitioner Primary Care; Visit Provider Internal Medicine Hematology & Oncology
DX: E83.110 Hereditary hemochromatosis (principal)
CPT/HCPCS: 36415; 82728; 85025

== ENCOUNTER 2024-10-04 03:23 | Outpatient (CLI) | payer OTHER, SELFPAY ==
[2024-10-04 08:16] LABS: Abs Immature Grans 0.05 10^3/uL (0.0-0.06); Absolute Basophil Count 0.06 10^3/uL (0.0-0.2); Absolute Lymphocyte Count 1.72 10^3/uL (1.2-3.4); Absolute Monocyte Count 0.89 10^3/uL (0.1-0.8); Absolute Neutrophil Count 8.48 10^3/uL (1.2-6.7); Basophils % 0.5 %; Eosinophils % 4.4 %; HCT 48.6 % (40.0-50.0); HGB 15.9 g/dL (13.5-17.5); Immature Grans % 0.4 %; Lymphocytes % 14.7 %; MCH 31.2 pg (27.0-33.0); MCHC 32.7 % (32.0-36.0); MCV 96 fL (80-95); MPV 10.1 fL (8.0-11.0); Monocytes % 7.6 %; Neutrophils % 72.4 %; Platelet Count 216 10^3/uL (130-400); RBC 5.09 10^6/uL (4.36-5.78); RDW 13.2 % (11.8-14.1); RDW-SD 47.3 fL; WBC 11.71 10^3/uL (4.4-10.8)
[2024-10-04 08:18] LABS: Absolute Eosinophil Count 0.52 10^3/uL (0.0-0.7)
[2024-10-04 08:46] LABS: Ferritin 32 ng/mL (26-388)
== END 2024-10-04 03:24 | disposition home or self-care (01) ==
PROVIDERS: PCP Nurse Practitioner Primary Care; Visit Provider Internal Medicine Hematology & Oncology
DX: E83.110 Hereditary hemochromatosis (principal)
CPT/HCPCS: 36415; 82728; 85025

== ENCOUNTER 2024-11-05 11:04 | Outpatient (CLI) | payer OTHER, SELFPAY ==
[2024-11-05 09:34] LABS: Abs Immature Grans 0.03 10^3/uL (0.0-0.06); Absolute Basophil Count 0.07 10^3/uL (0.0-0.2); Absolute Eosinophil Count 0.72 10^3/uL (0.0-0.7); Absolute Lymphocyte Count 2.39 10^3/uL (1.2-3.4); Absolute Monocyte Count 0.63 10^3/uL (0.1-0.8); Absolute Neutrophil Count 4.67 10^3/uL (1.2-6.7); Basophils % 0.8 %; Eosinophils % 8.5 %; HCT 46.9 % (40.0-50.0); HGB 15.9 g/dL (13.5-17.5); Immature Grans % 0.4 %; Lymphocytes % 28.1 %; MCH 31.4 pg (27.0-33.0); MCHC 33.9 % (32.0-36.0); MCV 93 fL (80-95); MPV 10.4 fL (8.0-11.0); Monocytes % 7.4 %; Neutrophils % 54.8 %; Platelet Count 226 10^3/uL (130-400); RBC 5.06 10^6/uL (4.36-5.78); RDW 13.3 % (11.8-14.1); RDW-SD 45.6 fL; WBC 8.51 10^3/uL (4.4-10.8)
[2024-11-05 10:06] LABS: Ferritin 25 ng/mL (26-388)
== END 2024-11-05 11:05 | disposition home or self-care (01) ==
LOC: LBO 11:05
PROVIDERS: PCP Nurse Practitioner Primary Care; Visit Provider Internal Medicine Hematology & Oncology
DX: E83.110 Hereditary hemochromatosis (principal)
CPT/HCPCS: 36415; 82728; 85025

== ENCOUNTER 2024-12-03 02:14 | Outpatient (CLI) | payer OTHER, SELFPAY ==
[2024-12-03 09:33] LABS: Abs Immature Grans 0.03 10^3/uL (0.0-0.06); Absolute Basophil Count 0.05 10^3/uL (0.0-0.2); Absolute Eosinophil Count 0.37 10^3/uL (0.0-0.7); Absolute Lymphocyte Count 2.03 10^3/uL (1.2-3.4); Absolute Monocyte Count 0.49 10^3/uL (0.1-0.8); Absolute Neutrophil Count 6.27 10^3/uL (1.2-6.7); Basophils % 0.5 %; HCT 51.2 % (40.0-50.0); HGB 16.9 g/dL (13.5-17.5); Immature Grans % 0.3 %; MCH 30.7 pg (27.0-33.0); MCV 93 fL (80-95); MPV 10.4 fL (8.0-11.0); Monocytes % 5.3 %; Neutrophils % 67.9 %; Platelet Count 233 10^3/uL (130-400); RDW-SD 44.7 fL; WBC 9.24 10^3/uL (4.4-10.8)
[2024-12-03 10:07] LABS: Ferritin 36 ng/mL (26-388)
== END 2024-12-03 02:15 | disposition home or self-care (01) ==
PROVIDERS: PCP Nurse Practitioner Primary Care; Visit Provider Internal Medicine Hematology & Oncology
DX: E83.110 Hereditary hemochromatosis (principal)
CPT/HCPCS: 36415; 82728; 85025

== ENCOUNTER 2025-03-13 14:27 | Emergency (ER) | payer OTHER, SELFPAY ==
[2025-03-13 14:42] VITALS: BP 124/85; PULSE 83; RESP 16; TEMP 36.4; O2SAT 93
[2025-03-13 15:16] VITALS: RESP 12
[2025-03-13 15:28] LABS: Abs Immature Grans 0.05 10^3/uL (0.0-0.06); Absolute Basophil Count 0.03 10^3/uL (0.0-0.2); Absolute Eosinophil Count 0.19 10^3/uL (0.0-0.7); Absolute Lymphocyte Count 1.55 10^3/uL (1.2-3.4); Absolute Monocyte Count 0.74 10^3/uL (0.1-0.8); Absolute Neutrophil Count 8.08 10^3/uL (1.2-6.7); Basophils % 0.3 %; Eosinophils % 1.8 %; HCT 48.7 % (40.0-50.0); HGB 16.5 g/dL (13.5-17.5); Immature Grans % 0.5 %; Lymphocytes % 14.6 %; MCHC 33.9 % (32.0-36.0); MCV 92 fL (80-95); MPV 10.2 fL (8.0-11.0); Neutrophils % 75.8 %; Platelet Count 215 10^3/uL (130-400); RBC 5.32 10^6/uL (4.36-5.78); RDW 13.3 % (11.8-14.1); RDW-SD 45.1 fL; WBC 10.64 10^3/uL (4.4-10.8)
--- NOTE | 2025-03-13 15:30 | DI.RAD_ITS ---
Exam(s) XR HAND LT COMPLETE EXAM: XR HAND LT COMPLETE CLINICAL HISTORY: hand swelling, hemachromatosis. TECHNIQUE: 2D digital imaging was performed. COMPARISON: No exams were available for comparison FINDINGS: 3 views No evidence of acute fracture nor dislocation. No erosions. There are degenerative subarticular cys ts in the lateral half of the head of the 3rd metacarpal bone. No true erosions evident at this leve l nor elsewhere in the hand. There moderate degenerative changes in the 1st carpometacarpal joint as well as in the triscaphe joint on the lateral aspect of the wrist. There appears to be an element of soft tissue swelling throughout the hand. IMPRESSION: There are 3 adjacent degenerative subarticular cysts in the lateral half of the 3rd metacarpal head. No true erosion at this level. DATA REPOSITORY: RADIATION DOSE DELIVERED:
--- NOTE | 2025-03-13 15:30 | DI.RAD_ITS ---
Exam(s) XR HAND RT COMPLETE EXAM: XR HAND RT COMPLETE CLINICAL HISTORY: hand swelling, hemachromatosis. TECHNIQUE: 2D digital imaging was performed. COMPARISON: CR XR HAND LT COMPLETE from 03/13/2025 FINDINGS: 3 views No evidence of acute fracture nor dislocation. There is some soft tissue swelling over the hand but no radiopaque foreign body nor evidence of osteomyelitis. No osseous lesions nor erosions. There are degenerative changes at the 1st carpometacarpal joint, similar to the opposite side. There few degenerative cysts evident in the scaphoid. Scapholunate distance is normal. No evidence of av ascular necrosis in the carpal row bones. IMPRESSION: No acute osseous findings. No osseous lesions nor erosions. Degenerative changes the 1st carpometacarpal joint are noted. DATA REPOSITORY: RADIATION DOSE DELIVERED:
--- NOTE | 2025-03-13 15:37 | ED.GENADUL_ITS ---
Discharge Plan Disposition Patient Disposition: Home Condition: Good Discharge Details Clinical Impression: Bilateral hand swelling Primary Care Provider: Tonya Nguyen ED Provider: Laya Best Home Meds and New Rx's Prescriptions: New prednisone 20 mg tablet 20 mg PO DAILY Qty: 15 0RF Rx Instructions: Take 2 tablets by mouth for 5 days, then 1 tablet for 3 days, then 1/2 tablet for 3 days. prednisone 20 mg tablet 20 mg PO DAILY Qty: 14 0RF Rx Instructions: Take 2 tablets by mouth x 5 days, then 1 tablet daily x 3 days, then 1/2 tablet daily x 3 days No Action propranolol 40 mg tablet 40 mg PO BID hydrochlorothiazide 12.5 mg capsule 12.5 mg PO DAILY albuterol sulfate 90 mcg/actuation HFA aerosol inhaler 2 puff IH Q4H PRN dextroamphetamine-amphetamine 10 mg capsule,extended release 24hr 10 mg PO DAILY aripiprazole 5 mg tablet 5 mg PO DAILY clonidine HCl 0.1 mg tablet 0.1 mg PO QHS diclofenac sodium [Aleve (diclofenac)] 1 % gel 2 g topical QID Rx Instructions: apply to single elbow, wrist or hand; for hand includes palm/fingers/back of hand erenumab-aooe 140 mg/mL auto-injector 140 mg subcut QMONTH escitalopram oxalate 20 mg tablet 20 mg PO DAILY fluticasone propion-salmeterol 100-50 mcg/dose blister with device 1 inh inhalation BID Rx Instructions: INHALE 1 PUFF BY MOUTH TWICE A DAY FOR BREATHING RINSE MOUTH WITH WATER, SWISH AROUND AND SPIT OUT AFTER USING INHALER fluticasone propionate 50 mcg/actuation blister with device 2 inh inhalation BID hydrochlorothiazide 12.5 mg tablet 12.5 mg PO DAILY lisdexamfetamine 40 mg capsule 40 mg PO DAILY omeprazole 20 mg capsule,delayed release(DR/EC) 20 mg PO DAILY onabotulinumtoxinA 200 unit recon soln 200 unit IM ONCE Rx Instructions: as a single dose ondansetron HCl 4 mg tablet 4 mg PO Q8H Rx Instructions: TAKE ONE TABLET BY MOUTH TWICE A DAY FOR BLOOD PRESSURE/HEART sumatriptan 20 mg/actuation spray,non-aerosol 20 mg intranasal Q2H PRN Rx Instructions: administer into one nostril as a single dose; if 2nd dose needed,administer into other nostril after at least 2 hrs, NTE 2 doses (40 mg) per episode tadalafil 5 mg tablet 5 mg PO DAILY atorvastatin 20 mg tablet 20 mg PO DAILY calcium carbonate [Calcium 500] 500 mg calcium (1,250 mg) tablet,chewable 500 mg PO DAILY docusate sodium 100 mg capsule 100 mg PO DAILY acetaminophen [Tylenol] 325 mg Tablet 975 mg PO PRN PRN Patient Comments: 11/13/19-not effective ibuprofen 800 mg tablet 800 mg PO Q8H PRN PRNQty: 0 0RF metoclopramide HCl [Reglan] 10 mg tablet 10 mg PO Q6H PRN (Reason: nausea and vomiting) Qty: 20 0RF Discharge Instructions Additional Instructions: Please follow-up with [facility] orthopedics; call tomorrow to set up an appointment in the next 2 weeks. I prescribed you a round of steroids. Please take as prescribed. While you are taking this you may take Tylenol 6 and 50 mg every 6 hours. After you stop the steroids you may start ibuprofen 600 mg every 8 hours. Continue to take your omeprazole daily. Use warm Epsom salt soaks at least 3-4 times daily for 10 to 15 minutes at a time. Elevate hand above heart level. A tick panel is still pending; results will be available on the portal. Return to emergency if develop new fever/chills, general feeling of unwellness, if you have streaking/redness up your arms, or if you are very worried and need to be rechecked again immediately. Referrals: [facility] [Provider Group] Discharge Data Discharge Date/Time-TO BE ENTERED AT DEPARTURE: 03/13/25 17:47 HPI General Date/Time Provider Initiated Documentation: 03/13/25 14:55 . HPI Narrative: 49-year-old male with intermittent bilateral hand swelling for 2 weeks. Swelling worsened significantly this morning with pain and itching. No difficulty swallowing, chest pain, shortness of breath, exertional dyspnea, calf swelling, or tenderness. Similar episode in feet months ago, no current symptoms. No known exposures or new medications. History of hemochromatosis, no phlebotomy for 6 months, due in 1 month. Related Data Home Medications ?Medication ?Instructions ?Recorded ?Confirmed acetaminophen 325 mg tablet 975 mg PO PRN PRN 11/13/19 03/13/25 (Tylenol) propranolol 40 mg tablet 40 mg PO BID 02/20/20 03/13/25 albuterol sulfate 90 mcg/actuation 2 puff inhalation Q4H PRN 02/26/20 03/13/25 aerosol inhaler hydrochlorothiazide 12.5 mg capsule 12.5 mg PO DAILY 04/02/20 03/13/25 ibuprofen 800 mg tablet 800 mg PO Q8H PRN PRN #0 tabs 06/25/20 03/13/25 aripiprazole 5 mg tablet 5 mg PO DAILY 12/06/23 03/13/25 atorvastatin 20 mg tablet 20 mg PO DAILY 12/06/23 03/13/25 calcium carbonate (Calcium 500) 500 mg PO DAILY 12/06/23 03/13/25 clonidine HCl 0.1 mg tablet 0.1 mg PO QHS 12/06/23 03/13/25 dextroamphetamine-amphetamine ER 10 mg PO DAILY 12/06/23 03/13/25 10 mg 24hr capsule,extend release diclofenac sodium 1 % topical gel 2 g topical QID 12/06/23 03/13/25 (Aleve (diclofenac)) docusate sodium 100 mg capsule 100 mg PO DAILY 12/06/23 03/13/25 erenumab-aooe 140 mg/mL 140 mg subcut QMONTH 12/06/23 03/13/25 subcutaneous auto-injector escitalopram oxalate 20 mg tablet 20 mg PO DAILY 12/06/23 03/13/25 fluticasone 100 mcg-salmeterol 50 1 inh inhalation BID 12/06/23 03/13/25 mcg/dose blistr powdr for inhalation fluticasone propionate 50 2 inh inhalation BID 12/06/23 03/13/25 mcg/actuation blister powder for inhalation hydrochlorothiazide 12.5 mg tablet 12.5 mg PO DAILY 12/06/23 03/13/25 lisdexamfetamine 40 mg capsule 40 mg PO DAILY 12/06/23 03/13/25 omeprazole 20 mg capsule,delayed 20 mg PO DAILY 12/06/23 03/13/25 release onabotulinumtoxinA 200 unit 200 unit IM ONCE 12/06/23 03/13/25 solution for injection ondansetron HCl 4 mg tablet 4 mg PO Q8H 12/06/23 03/13/25 sumatriptan 20 mg/actuation nasal 20 mg intranasal Q2H PRN 12/06/23 03/13/25 spray tadalafil 5 mg tablet 5 mg PO DAILY 12/06/23 03/13/25 metoclopramide HCl 10 mg tablet 10 mg PO Q6H PRN nausea and 08/20/24 03/13/25 (Reglan) vomiting #20 tabs prednisone 20 mg tablet 20 mg PO DAILY #14 tabs 03/13/25 prednisone 20 mg tablet 20 mg PO DAILY #15 tabs 03/13/25 Previous Rx's ?Medication ?Instructions ?Recorded ibuprofen 800 mg tablet 800 mg PO Q8H PRN PRN #0 tabs 06/25/20 metoclopramide HCl 10 mg tablet 10 mg PO Q6H PRN nausea and 08/20/24 (Reglan) vomiting #20 tabs prednisone 20 mg tablet 20 mg PO DAILY #14 tabs 03/13/25 prednisone 20 mg tablet 20 mg PO DAILY #15 tabs 03/13/25 Allergies Allergy/AdvReac Type Severity Reaction Status Date / Time erythromycin base AdvReac Severe N/V Verified 03/13/25 14:49 General Stated Complaint: GenMedical STEVE: 3 Exam Narrative Exam Narrative: General Appearance: Alert, oriented, no acute distress. Vital signs: Within normal limits. HEENT: Within normal limits. Respiratory: Lungs clear. Cardiovascular: Regular cardiac rate and rhythm. Extremities: Erythema and swelling in both hands, good capillary refill, no lesions. Feet not involved. Skin: Warm and dry, no rash. Neurological: Normal. Course Vital Signs Vital signs: Vital Signs Temperature 36.4 C 03/13/25 14:42 Pulse 83 03/13/25 14:42 Respiratory Rate 16 03/13/25 14:42 Blood Pressure 124/85 03/13/25 14:42 Pulse Oximetry 93 03/13/25 14:42 Temperature 36.4 C 03/13/25 14:42 Temperature Source Temporal Artery Scan 03/13/25 14:42 Pulse 83 03/13/25 14:42 Respiratory Rate 12 03/13/25 15:16 Respiratory Effort Normal, Non-Labored 03/13/25 15:16 Respiratory Depth Normal 03/13/25 15:16 Respiratory Pattern Normal 03/13/25 15:16 Blood Pressure 124/85 03/13/25 14:42 Blood Pressure Position Sitting 03/13/25 14:42 Pulse Oximetry 93 03/13/25 14:42 Oxygen Delivery Method Room Air 03/13/25 14:42 Oxygen Flow Rate 0 03/13/25 14:42 Lab/Test Results Lab/Test Results: Laboratory Tests Range/Units 03/13/25 15:22 WBC (4.4-10.8) 10^3/uL 10.64 RBC (4.36-5.78) 10^6/uL 5.32 Hgb (13.5-17.5) g/dL 16.5 Hct (40.0-50.0) % 48.7 MCV (80-95) fL 92 MCH (27.0-33.0) pg 31.0 MCHC (32.0-36.0) % 33.9 RDW (11.8-14.1) % 13.3 Plt Count (130-400) 10^3/uL 215 MPV (8.0-11.0) fL 10.2 Immature Gran % % 0.5 Neutrophils % % 75.8 Lymphocytes % % 14.6 Monocytes % % 7.0 Eosinophils % % 1.8 Basophils % % 0.3 Nucleated RBC % (0.0-0.3) % 0.0 Absolute Neutrophils (1.2-6.7) 10^3/uL 8.08 H Absolute Lymphocytes (1.2-3.4) 10^3/uL 1.55 Absolute Monocytes (0.1-0.8) 10^3/uL 0.74 Absolute Eosinophils (0.0-0.7) 10^3/uL 0.19 Absolute Basophils (0.0-0.2) 10^3/uL 0.03 Medical Decision Making Laboratory Studies CBC is reassuring. Initial Assessment: 49-year-old male with bilateral hand swelling, intermittent over 2 weeks, worsened dramatically this morning. History of hemochromatosis, no phlebotomy for 6 months, due in 1 month. Denies known exposures, difficulty swallowing, chest pain, shortness of breath, new medications, exertional dyspnea, or calf swelling/tenderness. Alert and oriented, in no acute distress. Lungs clear to auscultation, cardiac rate and rhythm regular, distal pulses intact. Erythema and swelling in bilateral hands, good cap refill, no obvious lesions, feet not involved. Differential Diagnosis: - Hemochromatosis: History of hemochromatosis, no phlebotomy for 6 months. Possible manifestation of hemochromatosis. arthritis, contact dermatitis Plan: Order CBC, CMP, iron, and ferritin levels. - CHF: Considered clinically for CHF. Plan: Order CBC, CMP, iron, and ferritin levels. ED Course: - Ordered CBC, CMP, iron, and ferritin levels. - Reviewed return precautions, patient expressed understanding. Final Assessment: Bilateral hand swelling with erythema, pain, and itching, likely related to hemochromatosis or CHF. Diagnostic tests ordered, patient likely to be discharged pending hematology consultation. Clinical Impression: - Bilateral hand swelling - Hemochromatosis Disposition: - Likely discharge pending hematology consultation MDM Components Evaluation: - Number of Differential Diagnoses or Management Options: Hemochromatosis, CHF - Amount and Complexity of Data Reviewed: CBC, CMP, iron, and ferritin levels - Risk of Complication and Morbidity or Mortality: Potential complications related to hemochromatosis and CHF Quality:SDOH Health Related Social Needs: No Data to Display PFSH All Active Problems (Updated 03/13/25 @ 17:23 by Laya Gerardo) Bilateral hand swelling (Acute) Neck pain on left side (Acute) Ulnar neuropathy of left upper extremity (Acute) Bilateral carpal tunnel syndrome (Acute) Articular cartilage disorder of left knee (Acute) Amplified musculoskeletal pain (Acute) Stiffness of left knee (Acute) Ear pain (Acute) Migraine headache with aura (Acute) Migraine headache without aura (Acute) Medical History Erectile dysfunction Chronic sinusitis of both maxillary sinuses Pain, joint, ankle, left Asthma Benign essential hypertension No active medical problems Surgical History H/O vasectomy S/P hernia repair Family History Mother Breast cancer Thyroid disease Osteoarthritis Maternal Grandmother Breast cancer Maternal Cousin Breast cancer Father , 52 NARCOTIC RELATED No problems noted. Social History Smoking/Tobacco Use Status: Never Smoking risk assessment performed?: Yes Alcohol Intake: current Alcohol Intake frequency: holidays/special occasions only Alcohol type: beer Drug use: Daily Substance use type: marijuana Household members: spouse and children Housing: house Number of Children: 5 Pets and animals: Yes What is your relationship status?: Panel score (0-1 are the most socially isolated patients): 1 Seatbelt use: always Do you feel safe at home: Yes Do you feel safe in your relationship?: Yes
[2025-03-13 15:40] LABS: Prothrombin Time 10.4 sec (9.1-11.1)
[2025-03-13 15:47] LABS: Iron 106 ug/dL (65-175)
[2025-03-13 16:02] LABS: ALT 15 U/L (16-63); AST 14 U/L (15-37); Albumin 3.6 g/dL (3.4-5.0); Alkaline Phosphatase 61 U/L (46-116); Anion Gap 6.3 mmol/L (3-11); BUN 14 mg/dL (7-18); Bilirubin, Total 0.6 mg/dL (0.2-1.0); CO2 29.7 mmol/L (21.0-32.0); CREATININE 0.7 mg/dL (0.70-1.30); Calcium 9.1 mg/dL (8.5-10.1); Chloride 104 mmol/L (98-107); Estimated GFR 112.95 (mL/min/1.73m2); Ferritin 88 ng/mL (26-388); Glucose 80 mg/dL (74-106); Potassium 3.9 mmol/L (3.5-5.1); Sodium 140 mmol/L (136-145); Total Protein 6.5 g/dL (6.4-8.2)
--- NOTE | 2025-03-13 16:15 | W.ED.FU ---
Follow Up Plan: Handoff report received from ISAAC Alba, daytime ATIYA. Please see her note for full HPI/ROS and physical exam. Fernando is a 49-year-old male with hemochromatosis who presents to the emergency department for intermittent bilateral hand swelling. I independently interpreted the following tests: CBC reassuring, H&H within normal limits. CMP, iron, ferritin, PT/INR all reassuring. X-rays show degenerative changes of hands. Discussed case with Dr. Reed, [facility] [place] commercial litigation attorney. Overall presentation is reassuring, differentials include pseudogout versus tickborne illness versus iron deposition in joints. Tick panel added to blood work. Discussed case with Dr. Caruso, [facility] orthopedist. Has joints are small, arthrocentesis unlikely to be successful. Recommends treating as arthritis with steroids followed by NSAIDs. Epsom salts and follow-up in 2 weeks also recommended. Unclear etiology of hand swelling, likely arthritis like condition. Patient to follow-up with orthopedist for further evaluation/management. Reviewed discharge instructions with Fernando, including symptomatic management and red flags indicate need for return to emergency care
[2025-03-13] MEDS: predniSONE 20 MG TAB 40 MG PO (17:50)
[2025-03-13 17:51] VITALS: BP 132/79; PULSE 86; RESP 12; O2SAT 96
[2025-03-15 09:57] LABS: Lyme Ab w Rflx to Lyme Confirm Negative (Negative)
[2025-03-17 15:39] LABS: Anaplasma phagocytophilum Negative (Negative); B. miyamotoi PCR Negative (Negative); Babesia divergens/MO-1 Negative (Negative); Babesia duncani Negative (Negative); Babesia microti Negative (Negative); Ehrlichia chaffeensis Negative (Negative); Ehrlichia ewingii/canis Negative (Negative); Ehrlichia muris eauclairensis Negative (Negative)
== END 2025-03-13 17:47 | disposition home or self-care (01) ==
PROVIDERS: Physician Assistant; Emergency Provider Nurse Practitioner Family; PCP Physician Assistant
DX: M79.89 Other specified soft tissue disorders (principal)
CPT/HCPCS: 99284 ×2; 36415; 80053; 87798; 73130; 82728; 83540; 85025; 85610; 86618; J7512